=== PATIENT | female | born 1935 | race Caucasian/White ===

== ENCOUNTER 2017-11-19 10:55 | Emergency (ER) | payer MEDICARE, BC ==
[2017-11-19] MEDS ORDERED: Ketorolac 30 MG/ML SDV IVPUSH ONE (11:35)
[2017-11-19] MEDS ORDERED: Sodium Chloride 0.9% 10 ML Syringe FLUSH PRN (11:36)
--- NOTE | 2017-11-19 11:44 | EDM.PDOC ---
ED HPI GENERAL MEDICAL PROBLEM - General Chief Complaint: Syncope Stated Complaint: [facility] Time Seen by Provider: 11/19/17 11:25 Source of Information: Reports: Patient, Family, Old Records History Limitations: Reports: Other (records incomplete) - History of Present Illness INITIAL COMMENTS - FREE TEXT/NARRATIVE: 82 yo female with a pHx of syncopal spells presents via EMS after another brief syncopal spell at home today. When she came to on the floor she complained of mid back pain. Recalls feeling like she might pass out just before she did. Was standing in one place at the onset. Denies chest pain. No recent vomiting, diarrhea, or bleeding. says that her prior spells were associated with bradycardia. 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 (see below) (none) back pain Pain Score (Numeric/FACES): 3 - Related Data Allergies Allergy/AdvReac Type Severity Reaction Status Date / Time amlodipine Allergy Cannot Verified 11/19/17 11:07 Remember carbamazepine [From Tegretol] Allergy Dizziness Verified 11/19/17 11:07 Penicillins Allergy Hives Verified 11/19/17 11:07 Home Meds: Home Meds Cyanocobalamin (Vitamin B-12) [Cyanocobalamin Injection] 1,000 mcg IM .[id number] 06/29/13 [History] Metoprolol Succinate [Toprol XL] 25 mg PO DAILY 06/29/13 [History] Aspirin [Low Dose Aspirin EC] 81 mg PO DAILY 07/21/13 [History] Pregabalin [Lyrica] 300 mg PO BEDTIME 09/14/15 [History] oxyCODONE 10 mg PO Q4H PRN 09/14/15 [History] Lidocaine 2% [Xylocaine 2% Viscous] 15 ml PO ASDIRECTED 07/13/16 [History] DULoxetine [Cymbalta] 30 mg PO DAILY 10/24/16 [History] Losartan [Cozaar] 25 mg PO DAILY 11/19/17 [History] oxyCODONE [oxyCODONE] 10 mg PO Q4HR PRN 11/19/17 [History] Past Medical History HEENT History: Reports: Hard of Hearing, Other (See Below) Other HEENT History: mouth pain, left face pain. 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: Neurological History: Reports: Migraines Other Neuro History: n Endocrine/Metabolic History: Reports: Vitamin D Deficiency Hematologic History: Reports: Anemia Other Hematologic History: Autoimmune hemolytic anemia - Infectious Disease History Infectious Disease History: Reports: Chicken Pox, Measles, Mumps - Past Surgical History GI Surgical History: Reports: Cholecystectomy Other Musculoskeletal Surgeries/Procedures:: rigth foot fracture Social & Family History - Tobacco Use Smoking Status *Q: Never Smoker Second Hand Smoke Exposure: No - Caffeine Use Caffeine Use: Reports: None - Alcohol Use Days Per Week of Alcohol Use: 0 - Recreational Drug Use Recreational Drug Use: No ED ROS GENERAL - Review of Systems Review Of Systems: See Below Constitutional: Reports: Diaphoresis ( states she was sweaty at first.) HEENT: Reports: No Symptoms Respiratory: Reports: No Symptoms Cardiovascular: Reports: No Symptoms GI/Abdominal: Reports: No Symptoms : Reports: No Symptoms Musculoskeletal: Reports: Back Pain (since fall) Skin: Reports: Diaphoresis (reported by her , now resolved.) Neurological: Reports: No Symptoms Psychiatric: Reports: No Symptoms - Physical Exam Exam: See Below Exam Limited By: No Limitations General Appearance: Alert, WD/WN, No Apparent Distress Eye Exam: Bilateral Eye: EOMI, Normal Inspection, PERRL Ears: Normal External Exam, Normal Canal, Hearing Grossly Normal, Normal TMs Nose: Normal Inspection, Normal Mucosa, No Blood Throat/Mouth: Normal Inspection, Normal Lips, Normal Oropharynx, Normal Voice, No Airway Compromise Head Exam: Atraumatic, Normocephalic Neck: Normal Inspection Respiratory/Chest: No Respiratory Distress, Lungs Clear, Normal Breath Sounds, No Accessory Muscle Use Cardiovascular: Regular Rate, Rhythm GI/Abdominal: Normal Bowel Sounds, Soft, Non-Tender, No Distention Neuro Exam (Abbreviated): Alert, Oriented, CN II-XII Intact, Normal Cognition, No Motor/Sensory Deficits Back Exam: Normal Inspection. No: CVA Tenderness (R), CVA Tenderness (L), Paraspinal Tenderness, Vertebral Tenderness Extremities: Normal Inspection, Normal Range of Motion, Non-Tender, No Pedal Edema. No: Pedal Edema Psychiatric: Normal Affect, Normal Mood Skin Exam: Warm, Dry, Intact, Normal Color, No Rash EKG INTERPRETATION EKG Date: 11/19/17 Time: 10:25 Rhythm: NSR Rate (Beats/Min): 67 [place]: Normal P-Wave: Present QRS: Normal ST-T: Normal QT: Normal Comparison: No Change Course - Vital Signs Text/Narrative:: Toradol 15 mg IV given Orthostatic vitals-BP drop of just over 20 pts(minimally symptomatic) Will feed lunch and give a liter of LR Last Recorded V/S: Last Vital Signs Temp 36.3 C 11/19/17 11:04 Pulse 65 11/19/17 11:04 Resp 16 11/19/17 11:04 BP 160/67 H 11/19/17 11:04 Pulse Ox 98 11/19/17 11:04 - Orders/Labs/Meds Orders: Active Orders 24 hr Category Date Time Status Cardiac Monitoring [RC] .As Directed Care 11/19/17 11:36 Active Orthostatic Vital Signs [RC] ASDIRECTED Care 11/19/17 12:37 Active UA W/MICROSCOPIC [URIN] Stat Lab 11/19/17 11:38 Ordered Lactated Ringers [Ringers, Lactated] 1,000 ml Med 11/19/17 13:17 Ordered IV BOLUS Sodium Chloride 0.9% [Saline Flush] Med 11/19/17 11:36 Active 10 ml FLUSH ASDIRECTED PRN Saline Lock Insert [OM.PC] Routine Oth 11/19/17 11:36 Ordered Medication Orders Sodium Chloride (Saline Flush) 10 ml FLUSH ASDIRECTED PRN PRN Reason: Keep Vein Open Last Admin: 11/19/17 11:44 Dose: 10 ml Labs: Laboratory Tests 11/19/17 11/19/17 Range/Units 11:43 11:43 WBC 10.7 (4.5-11.0) K/uL RBC 4.06 (3.30-5.50) M/uL Hgb 12.8 (12.0-15.0) g/dL Hct 38.7 (36.0-48.0) % MCV 95 (80-98) fL MCH 32 H (27-31) pg MCHC 33 (32-36) % Plt Count 172 (150-400) K/uL Sodium 137 L (140-148) mmol/L Potassium 4.1 (3.6-5.2) mmol/L Chloride 101 (100-108) mmol/L Carbon Dioxide 31 (21-32) mmol/L Anion Gap 9.1 (5.0-14.0) mmol/L BUN 13 (7-18) mg/dL Creatinine 0.9 (0.6-1.0) mg/dL Est Cr Clr Drug Dosing 39.27 mL/min Estimated GFR (MDRD) > 60 (>60) Glucose 103 (74-106) mg/dL Calcium 8.8 (8.5-10.1) mg/dL Troponin I 0.025 (0.000-0.056) ng/mL Meds: Medications Generic Name Dose Route Start Last Admin Trade Name Freq PRN Reason Stop Dose Admin Sodium Chloride 10 ml 11/19/17 11:36 11/19/17 11:44 Saline Flush FLUSH 10 ml ASDIRECTED PRN Administration Keep Vein Open Discontinued Medications Generic Name Dose Route Start Last Admin Trade Name Freq PRN Reason Stop Dose Admin Ketorolac Tromethamine 15 mg 11/19/17 11:35 11/19/17 11:44 Toradol IVPUSH 11/19/17 11:36 15 mg ONETIME ONE Administration - Radiology Interpretation Free Text/Narrative:: Lumbar spine X-ray-degen changes only T-spine X-ray-degen changes only. Departure - Departure Time of Disposition: 14:25 Disposition: Home, Self-Care 01 Condition: Fair Clinical Impression: Orthostatic hypotension Syncope Qualifiers: Syncope type: unspecified Qualified Code(s): R55 - Syncope and collapse - Discharge Information Referrals: PCP,None [Primary Care Provider] - Forms: ED Department Discharge - My Orders Last 24 Hours: My Active Orders 11/19/17 11:36 Cardiac Monitoring [RC] .As Directed Sodium Chloride 0.9% [Saline Flush] 10 ml FLUSH ASDIRECTED PRN Saline Lock Insert [OM.PC] Routine 11/19/17 11:38 UA W/MICROSCOPIC [URIN] Stat 11/19/17 12:37 Orthostatic Vital Signs [RC] ASDIRECTED 11/19/17 13:17 Lactated Ringers [Ringers, Lactated] 1,000 ml IV BOLUS - Assessment/Plan Last 24 Hours: My Active Orders 11/19/17 11:36 Cardiac Monitoring [RC] .As Directed Sodium Chloride 0.9% [Saline Flush] 10 ml FLUSH ASDIRECTED PRN Saline Lock Insert [OM.PC] Routine 11/19/17 11:38 UA W/MICROSCOPIC [URIN] Stat 11/19/17 12:37 Orthostatic Vital Signs [RC] ASDIRECTED 11/19/17 13:17 Lactated Ringers [Ringers, Lactated] 1,000 ml IV BOLUS
--- NOTE | 2017-11-19 12:37 | CR ---
T-spine Findings: There is a scoliotic curvature of the thoracic spine with the convexity to the left. There are no com pression fractures. There is degenerative disc space loss with hypertrophic endplate changes througho ut the thoracic spine. Impression: 1. Degenerative findings of the thoracic spine. Line 2. No evidence of fracture.
--- NOTE | 2017-11-19 12:38 | CR ---
L-spine There is grade 1 spondylolisthesis at L4/5. There are no compression fractures. There is degenerative facet arthropathy throughout the lumbar spine. Impression: 1. No acute findings.
[2017-11-19] MEDS ORDERED: Lactated Ringers 1,000 ML IV ONE (13:17)
[2017-11-19 14:18] VITALS: BP 153/71
== END 2017-11-19 15:12 | disposition home or self-care (01) ==
LOC: JP.ED 10:55
DX: I95.1 Orthostatic hypotension (principal); E78.00 Pure hypercholesterolemia, unspecified; I10 Essential (primary) hypertension; Z88.8 Allergy status to other drugs, medicaments and biological substances; Z88.0 Allergy status to penicillin; Z79.82 Long term (current) use of aspirin; Z79.899 Other long term (current) drug therapy
CPT/HCPCS: 36415; 72070; 72100; 80048; 84484; 85027; 96361; 96374; 99284; J1885; J7050; J7120

== ENCOUNTER 2019-06-14 23:21 | Inpatient (IN) | payer MEDICARE, BC ==
--- NOTE | 2019-06-15 00:09 | EDM.PDOC ---
ED HPI GENERAL MEDICAL PROBLEM - General Chief Complaint: General Stated Complaint: FELL Time Seen by Provider: 06/14/19 23:40 Source of Information: Reports: Patient, Family History Limitations: Reports: Altered Mental Status - History of Present Illness INITIAL COMMENTS - FREE TEXT/NARRATIVE: 84 yo with hx of trigeminal neuralgia, a-fib (no anticoagulation) presents with concerns of falls and generalized weakness. History provided primarily be . reports she fell approximately 24 hrs ago, spent much of the last day in a chair at home. She again had an unwitnessed fall tonight, found her on the ground. She has been more weak recently, and overall having decline for some time. She is supposed to be wheelchair bound but this has not happened. No fevers. Patient has reported dysuria. She is intermittently concerned of neck pain. Is on multiple pain meds (oxycodone, lyrica) for painful mouth syndrome. Posterior Neck Pain Score (Numeric/FACES): 4 - Related Data Allergies Allergy/AdvReac Type Severity Reaction Status Date / Time amlodipine Allergy Cannot Verified 11/19/17 11:07 Remember carbamazepine [From Tegretol] Allergy Dizziness Verified 11/19/17 11:07 Penicillins Allergy Hives Verified 11/19/17 11:07 Home Meds: Home Meds Cyanocobalamin (Vitamin B-12) [Cyanocobalamin Injection] 1,000 mcg IM .[id number] 06/29/13 [History] Metoprolol Succinate [Toprol XL] 25 mg PO DAILY 06/29/13 [History] Aspirin [Low Dose Aspirin EC] 81 mg PO DAILY 07/21/13 [History] Pregabalin [Lyrica] 300 mg PO BEDTIME 09/14/15 [History] oxyCODONE 10 mg PO Q4H PRN 09/14/15 [History] Lidocaine 2% [Xylocaine 2% Viscous] 15 ml PO ASDIRECTED 07/13/16 [History] oxyCODONE 10 mg PO Q4HR PRN 11/19/17 [History] Past Medical History HEENT History: Reports: Hard of Hearing, Other (See Below) Other HEENT History: mouth pain, left face pain. 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: Musculoskeletal History: Reports: Osteoporosis Neurological History: Reports: Migraines Other Neuro History: n Endocrine/Metabolic History: Reports: Hypothyroidism, Vitamin D Deficiency Hematologic History: Reports: Anemia Other Hematologic History: Autoimmune hemolytic anemia - Infectious Disease History Infectious Disease History: Reports: Chicken Pox, Measles, Mumps - Past Surgical History GI Surgical History: Reports: Cholecystectomy Other Musculoskeletal Surgeries/Procedures:: rigth foot fracture Social & Family History - Family History Family Medical History: Noncontributory - Tobacco Use Smoking Status *Q: Never Smoker - Caffeine Use Caffeine Use: Reports: None - Recreational Drug Use Recreational Drug Use: No ED ROS GENERAL - Review of Systems Review Of Systems: See Below Constitutional: Reports: No Symptoms HEENT: Reports: Other (mouth pain) Respiratory: Reports: No Symptoms Cardiovascular: Reports: No Symptoms Endocrine: Reports: No Symptoms GI/Abdominal: Reports: No Symptoms : Reports: Dysuria Musculoskeletal: Reports: Neck Pain Skin: Reports: No Symptoms Neurological: Reports: Confusion, Weakness Psychiatric: Reports: No Symptoms Hematologic/Lymphatic: Reports: No Symptoms Immunologic: Reports: No Symptoms ED EXAM, GENERAL - Physical Exam Exam: See Below Exam Limited By: Altered Mental Status General Appearance: Alert Nose: Normal Inspection Head: Atraumatic, Normocephalic Neck: Normal Inspection, Non-Tender Respiratory/Chest: Lungs Clear Cardiovascular: Regular Rate, Rhythm GI/Abdominal: Soft, Tender (suprapubic). No: Guarding Back Exam: Normal Inspection Extremities: Normal Inspection Neurological: Alert, CN II-XII Intact, Other (Oriented to place, global weakness , no focal deficit) Psychiatric: Normal Affect Skin Exam: Warm, Dry Course - Vital Signs Last Recorded V/S: Last Vital Signs Temp 37.6 C 06/15/19 01:03 Pulse 67 06/15/19 01:43 Resp 13 06/15/19 01:43 BP 110/60 06/15/19 01:43 Pulse Ox 93 L 06/15/19 01:43 - Orders/Labs/Meds Orders: Active Orders 24 hr Category Date Time Status EKG Documentation Completion [RC] ASDIRECTED Care 06/14/19 23:30 Active CULTURE URINE [RM] Stat Lab 06/15/19 00:30 Received Sodium Chloride 0.9% [Normal Saline] 500 ml Med 06/15/19 02:15 Active IV ASDIRECTED EKG 12 Lead [EK] Routine Ther 06/14/19 23:29 Ordered Medication Orders Sodium Chloride (Normal Saline) 500 mls @ 500 mls/hr IV ASDIRECTED ISHMAEL Labs: Laboratory Tests 06/14/19 06/14/19 06/14/19 Range/Units 23:39 23:39 23:39 WBC 9.7 (4.5-11.0) K/uL RBC 3.91 (3.30-5.50) M/uL Hgb 12.3 (12.0-15.0) g/dL Hct 36.5 (36.0-48.0) % MCV 93 (80-98) fL MCH 32 H (27-31) pg MCHC 34 (32-36) % Plt Count 152 (150-400) K/uL Sodium 127 L (140-148) mmol/L Potassium 4.3 (3.6-5.2) mmol/L Chloride 93 L (100-108) mmol/L Carbon Dioxide 30 (21-32) mmol/L Anion Gap 8.3 (5.0-14.0) mmol/L BUN 15 (7-18) mg/dL Creatinine 0.9 (0.6-1.0) mg/dL Est Cr Clr Drug Dosing 34.51 mL/min Estimated GFR (MDRD) 60 (>60) Glucose 118 H (74-106) mg/dL Calcium 8.4 L (8.5-10.1) mg/dL Phosphorus (2.5-4.9) mg/dL Magnesium 1.7 L (1.8-2.4) mg/dL Total Bilirubin 1.0 D (0.2-1.0) mg/dL AST 22 (15-37) U/L ALT 12 (12-78) U/L Alkaline Phosphatase 58 (46-116) U/L Total Protein 6.9 (6.4-8.2) g/dL Albumin 2.9 L (3.4-5.0) g/dL Globulin 4.0 H (2.3-3.5) g/dL Albumin/Globulin Ratio 0.7 L (1.2-2.2) Urine Color (YELLOW) Urine Appearance (CLEAR) Urine pH (5.0-8.0) Ur Specific [place] (1.008-1.030) Urine Protein (NEGATIVE) mg/dL Urine Glucose (UA) (NEGATIVE) mg/dL Urine Ketones (NEGATIVE) mg/dL Urine Occult Blood (NEGATIVE) Urine Nitrite (NEGATIVE) Urine Bilirubin (NEGATIVE) Urine Urobilinogen (0.2-1.0) EU/dL Ur Leukocyte Esterase (NEGATIVE) Urine RBC (0-5) Urine WBC (0-5) Ur Epithelial Cells Amorphous Sediment Urine Bacteria Urine Mucus 06/14/19 06/15/19 Range/Units 23:58 00:12 WBC (4.5-11.0) K/uL RBC (3.30-5.50) M/uL Hgb (12.0-15.0) g/dL Hct (36.0-48.0) % MCV (80-98) fL MCH (27-31) pg MCHC (32-36) % Plt Count (150-400) K/uL Sodium (140-148) mmol/L Potassium (3.6-5.2) mmol/L Chloride (100-108) mmol/L Carbon Dioxide (21-32) mmol/L Anion Gap (5.0-14.0) mmol/L BUN (7-18) mg/dL Creatinine (0.6-1.0) mg/dL Est Cr Clr Drug Dosing mL/min Estimated GFR (MDRD) (>60) Glucose (74-106) mg/dL Calcium (8.5-10.1) mg/dL Phosphorus 2.6 (2.5-4.9) mg/dL Magnesium (1.8-2.4) mg/dL Total Bilirubin (0.2-1.0) mg/dL AST (15-37) U/L ALT (12-78) U/L Alkaline Phosphatase (46-116) U/L Total Protein (6.4-8.2) g/dL Albumin (3.4-5.0) g/dL Globulin (2.3-3.5) g/dL Albumin/Globulin Ratio (1.2-2.2) Urine Color Yellow (YELLOW) Urine Appearance Cloudy A (CLEAR) Urine pH 7.0 (5.0-8.0) Ur Specific [place] 1.015 (1.008-1.030) Urine Protein 100 H (NEGATIVE) mg/dL Urine Glucose (UA) Negative (NEGATIVE) mg/dL Urine Ketones Negative (NEGATIVE) mg/dL Urine Occult Blood Moderate H (NEGATIVE) Urine Nitrite Positive H (NEGATIVE) Urine Bilirubin Negative (NEGATIVE) Urine Urobilinogen 0.2 (0.2-1.0) EU/dL Ur Leukocyte Esterase Large H (NEGATIVE) Urine RBC 0-5 (0-5) Urine WBC Packed H (0-5) Ur Epithelial Cells Not seen Amorphous Sediment Few Urine Bacteria Moderate Urine Mucus Not seen Meds: Medications Generic Name Dose Route Start Last Admin Trade Name Freq PRN Reason Stop Dose Admin Sodium Chloride 500 mls @ 500 mls/hr 06/15/19 02:15 Normal Saline IV ASDIRECTED ISHMAEL Discontinued Medications Generic Name Dose Route Start Last Admin Trade Name Freq PRN Reason Stop Dose Admin Ceftriaxone Sodium 1 gm/ 50 mls @ 100 mls/hr 06/15/19 00:10 06/15/19 00:58 Sodium Chloride IV 06/15/19 00:39 100 mls/hr ONETIME ONE Administration Lactated Ringer's 500 mls @ 500 mls/hr 06/15/19 00:30 Ringers, Lactated IV .BOLUS ISHMAEL Sodium Chloride 500 ml 06/15/19 01:46 06/15/19 01:56 Normal Saline IV 06/15/19 01:47 Not Given NOW STA - Re-Assessments/Exams Free Text/Narrative Re-Assessment/Exam: 84 yo presents with generalized malaise, frequent falls at home Stable vitals. Exam notable for suprapubic tenderness, generalized weakness, depressed mental status Patient intermittently concerned of neck pain. Will obtain CT head/neck given falls, pain. No other trauma by exam to necessitate further imaging. Will perform basic infectious work-up. Suspicious for UTI. Giving ceftriaxone. Will need admission as she is not safe to be at home due to acute decline. 06/15/19 00:19 Free Text/Narrative Re-Assessment/Exam: CT head/neck unremarkable. Blood work generally unremarkable. UA grossly positive. Suspect UTI has led to acute decline. Not safe to go home, admitted for further work up and appropriate placement. 06/15/19 02:13 Departure - Departure Time of Disposition: 02:10 Disposition: Admitted As Inpatient 68 Clinical Impression: Gait instability UTI (urinary tract infection) Qualifiers: Urinary tract infection type: acute cystitis Hematuria presence: with hematuria Qualified Code(s): N30.01 - Acute cystitis with hematuria - Discharge Information *PRESCRIPTION DRUG MONITORING PROGRAM REVIEWED*: No *COPY OF PRESCRIPTION DRUG MONITORING REPORT IN PATIENT LALA: No Referrals: PCP,None [Primary Care Provider] - Forms: ED Department Discharge - My Orders Last 24 Hours: My Active Orders 06/14/19 23:29 EKG 12 Lead [EK] Routine 06/14/19 23:30 EKG Documentation Completion [RC] ASDIRECTED 06/15/19 00:30 CULTURE URINE [RM] Stat 06/15/19 02:15 Sodium Chloride 0.9% [Normal Saline] 500 ml IV ASDIRECTED - Assessment/Plan Last 24 Hours: My Active Orders 06/14/19 23:29 EKG 12 Lead [EK] Routine 06/14/19 23:30 EKG Documentation Completion [RC] ASDIRECTED 06/15/19 00:30 CULTURE URINE [RM] Stat 06/15/19 02:15 Sodium Chloride 0.9% [Normal Saline] 500 ml IV ASDIRECTED
[2019-06-15] MEDS ORDERED: cefTRIAXone 1 GM in Sodium Chloride 0.9% 50 ML IV ONE (00:10)
[2019-06-15] MEDS ORDERED: Lactated Ringers 500 ML IV SCH (00:30)
--- NOTE | 2019-06-15 00:57 | CRLCR ---
HISTORY: Confusion, hypoxia, possible sepsis. COMPARISON: 12/28/2012 FINDINGS: A portable erect AP view of the chest was obtained at 0024 hours. There is increased fibronodular density in the apices. This is suggestive of tuberculosis, and with increased density, active tuberculosis cannot be excluded. The rest of the chest remains clear The heart remains normal in size. The mediastinum is normal in appearance. The osseous structures are normal in appearance for the patient`s age. IMPRESSION: Increased fibronodular density in the apices, cannot exclude reactivation tuberculosis. No other abnormality seen in the chest. Dictated by London Escobar MD @ Jun 15 2019 12:53AM Signed by Dr. London Escobar @ Jun 15 2019 12:56AM
--- NOTE | 2019-06-15 01:17 | CRLCT ---
INDICATION: CONFUSION HYPOXIA FALLS CT HEAD WITHOUT CONTRAST TECHNIQUE: Multiple axial CT images were performed through the head without intravenous contrast administration. COMPARISON: 06/09/[address] FINDINGS: No acute intracranial hemorrhage is identified. No extra-axial collections are evident and there is no mass effect or midline shift. There is mild diffuse age-related brain atrophy. Ventricular size and configuration are within normal limits for the patient`s age. Hernandez-white differentiation is within normal limits. There is unchanged patchy hypodensity in the periventricular white matter, a nonspecific finding which most likely reflects chronic small vessel ischemic change. Osseous structures are within normal limits and no fractures are seen. Included portions of the paranasal sinuses and mastoid air cells are normally aerated. IMPRESSION: 1. No acute intracranial abnormality identified. 2. Mild age-related brain atrophy and white matter hypodensity consistent with chronic small vessel ischemic change. CABRERA WHITLEY MD [facility] [employer] Dictated by: Nnamdi Whitley MD @ 06/15/2019 01:16:36 (Electronically Signed)
--- NOTE | 2019-06-15 01:21 | CRLCT ---
INDICATION: FALLS NECK PAIN CT CERVICAL SPINE WITHOUT CONTRAST TECHNIQUE: Multidetector axial CT imaging was performed through the cervical spine, without contrast. Sagittal and coronal reconstructions were generated. FINDINGS: No acute fractures are identified. Multilevel degenerative change is noted in the cervical spine, including degenerative disc disease at C2-3 through C6-7, and scattered facet joint degenerative changes. Osseous alignment is within normal limits and no subluxation is seen. Prevertebral soft tissues are unremarkable. A 2cm hypodense nodule is noted in the right thyroid lobe. Included portions of the airway and lung apices are within normal limits. IMPRESSION: 1. No fracture, subluxation, or other acute finding identified. 2. Cervical spondylosis, as noted above. CABRERA WHITLEY MD [facility] [employer] Dictated by: Nnamdi Whitley MD @ 06/15/2019 01:20:08 (Electronically Signed)
[2019-06-15] MEDS ORDERED: Sodium Chloride 0.9% 10 ML SDV IV STA (01:46)
[2019-06-15] MEDS ORDERED: Sodium Chloride 0.9% 500 ML IV SCH (02:15)
--- NOTE | 2019-06-15 03:08 | PCM.HP.2 ---
H&P History of Present Illness - General Date of Service: 06/14/19 Admit Problem/Dx: Admission Diagnosis/Problem Admission Diagnosis/Problem Urinary tract infection Source of Information: Patient, Provider, RN Notes Reviewed History Limitations: Reports: Other (weakness, fatigue) - History of Present Illness Initial Comments - Free Text/Narative: Chief Complaint: reports weakness and confusion History Limitations: Reports: Altered Mental Status - History of Present Illness: 84 yo with hx of trigeminal neuralgia, a-fib (no anticoagulation) presents with concerns of falls and generalized weakness. History provided primarily be . reports she fell approximately 24 hrs ago, spent much of the last day in a chair at home. She again had an unwitnessed fall tonight, found her on the ground. She has been more weak recently, and overall having decline for some time. She is supposed to be wheelchair bound but this has not happened. No fevers. Patient has reported dysuria. incontinence of urine, wears diaper. She is intermittently concerned of neck pain. Is on multiple pain meds (oxycodone, lyrica) for painful mouth syndrome. Onset of Symptoms: Reports: Gradual Duration of Symptoms: Reports: Day(s): Location: Reports: Generalized Quality: Reports: Ache (low abdomen and back), Burning (low abdomen) Severity: Moderate Improves with: Reports: Rest Worsens with: Reports: Movement Context: Reports: Other (gradual decline in health and mobility at home) Associated Symptoms: Reports: Confusion, Loss of Appetite, Weakness (falls at home) Posterior Neck Pain Score (Numeric/FACES): 4 - Related Data Allergies/Adverse Reactions: Allergies Allergy/AdvReac Type Severity Reaction Status Date / Time amlodipine Allergy Cannot Verified 11/19/17 11:07 Remember carbamazepine [From Tegretol] Allergy Dizziness Verified 11/19/17 11:07 Penicillins Allergy Hives Verified 11/19/17 11:07 Home Medications: Home Meds Cyanocobalamin (Vitamin B-12) [Cyanocobalamin Injection] 1,000 mcg IM .[id number] 06/29/13 [History] Metoprolol Succinate [Toprol XL] 25 mg PO DAILY 06/29/13 [History] Aspirin [Low Dose Aspirin EC] 81 mg PO DAILY 07/21/13 [History] Pregabalin [Lyrica] 300 mg PO BEDTIME 09/14/15 [History] oxyCODONE 10 mg PO Q4H PRN 09/14/15 [History] Lidocaine 2% [Xylocaine 2% Viscous] 15 ml PO ASDIRECTED 07/13/16 [History] oxyCODONE 10 mg PO Q4HR PRN 11/19/17 [History] Past Medical History HEENT History: Reports: Hard of Hearing, Other (See Below) Other HEENT History: mouth pain, left face pain. 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: Musculoskeletal History: Reports: Osteoporosis Neurological History: Reports: Migraines Other Neuro History: n Endocrine/Metabolic History: Reports: Hypothyroidism, Vitamin D Deficiency Hematologic History: Reports: Anemia Other Hematologic History: Autoimmune hemolytic anemia - Infectious Disease History Infectious Disease History: Reports: Chicken Pox, Measles, Mumps - Past Surgical History GI Surgical History: Reports: Cholecystectomy Other Musculoskeletal Surgeries/Procedures:: rigth foot fracture Social & Family History - Family History Family Medical History: Noncontributory - Tobacco Use Smoking Status *Q: Never Smoker - Caffeine Use Caffeine Use: Reports: None - Recreational Drug Use Recreational Drug Use: No - Living Situation & Occupation Living situation: Reports: 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[place], [place].) H&P Review of Systems - Review of Systems: Review Of Systems: See Below General: Reports: Weakness, Fatigue, Decreased Appetite HEENT: Reports: Glasses, Other (dentures, burning mouth syndrome, idiopathic trigeminal neuralgia.) Pulmonary: Reports: No Symptoms Cardiovascular: Reports: No Symptoms Gastrointestinal: Reports: Abdominal Pain (low pelvic), Decreased Appetite Genitourinary: Reports: Dysuria, Frequency, Incontinence Musculoskeletal: Reports: Back Pain (low back pain) Skin: Reports: No Symptoms Psychiatric: Reports: Confusion (for the past few days) Neurological: Reports: Pre-Existing Deficit, Weakness (increased weakness, falls at home) Exam - Exam Exam: See Below - Vital Signs Vital Signs: Last Vital Signs Temp 37.6 C 06/15/19 01:03 Pulse 67 06/15/19 01:43 Resp 13 06/15/19 01:43 BP 110/60 06/15/19 01:43 Pulse Ox 93 L 06/15/19 01:43 Weight: 45.359 kg - Exam Quality Assessment: DVT Prophylaxis General: Alert, Oriented, Cooperative, Other HEENT: EOMI, Hearing Intact, Posterior Pharynx Clear, Pupils Equal, Pupils Reactive, TMs Clear, Glasses, Other (mouth dry, upper dentures) Neck: Supple, Trachea Midline Lungs: Clear to Auscultation, Normal Respiratory Effort Cardiovascular: Regular Rate, Regular Rhythm, Normal S1, Normal S2 GI/Abdominal Exam: Normal Bowel Sounds, Soft, Tender (pelvic, over bladder area) (Female) Exam: Deferred Rectal (Female) Exam: Deferred Back Exam: Normal Inspection Extremities: Normal Inspection, Normal Range of Motion, Non-Tender, Pedal Edema , Limited Range of Motion (due to advanced age) Peripheral Pulses: 2+: Radial (L), Radial (R), Dorsalis Pedis (L), Dorsalis Pedis (R) Skin: Warm, Dry, Intact Neurological: Reflexes Equal Bilateral, Strength Equal Bilateral Neuro Extensive - Mental Status: Alert, Normal Mood/Affect DTR: 2+: Patella (L), Patella (R) Psychiatric: Alert, Normal Affect, Normal Mood - Patient Data Lab Results Last 24 hrs: Laboratory Results - last 24 hr 06/14/19 06/14/19 06/14/19 Range/Units 23:39 23:39 23:39 WBC 9.7 (4.5-11.0) K/uL RBC 3.91 (3.30-5.50) M/uL Hgb 12.3 (12.0-15.0) g/dL Hct 36.5 (36.0-48.0) % MCV 93 (80-98) fL MCH 32 H (27-31) pg MCHC 34 (32-36) % Plt Count 152 (150-400) K/uL Sodium 127 L (140-148) mmol/L Potassium 4.3 (3.6-5.2) mmol/L Chloride 93 L (100-108) mmol/L Carbon Dioxide 30 (21-32) mmol/L Anion Gap 8.3 (5.0-14.0) mmol/L BUN 15 (7-18) mg/dL Creatinine 0.9 (0.6-1.0) mg/dL Est Cr Clr Drug Dosing 34.51 mL/min Estimated GFR (MDRD) 60 (>60) Glucose 118 H (74-106) mg/dL Calcium 8.4 L (8.5-10.1) mg/dL Phosphorus (2.5-4.9) mg/dL Magnesium 1.7 L (1.8-2.4) mg/dL Total Bilirubin 1.0 D (0.2-1.0) mg/dL AST 22 (15-37) U/L ALT 12 (12-78) U/L Alkaline Phosphatase 58 (46-116) U/L Total Protein 6.9 (6.4-8.2) g/dL Albumin 2.9 L (3.4-5.0) g/dL Globulin 4.0 H (2.3-3.5) g/dL Albumin/Globulin Ratio 0.7 L (1.2-2.2) Urine Color (YELLOW) Urine Appearance (CLEAR) Urine pH (5.0-8.0) Ur Specific Mobile (1.008-1.030) Urine Protein (NEGATIVE) mg/dL Urine Glucose (UA) (NEGATIVE) mg/dL Urine Ketones (NEGATIVE) mg/dL Urine Occult Blood (NEGATIVE) Urine Nitrite (NEGATIVE) Urine Bilirubin (NEGATIVE) Urine Urobilinogen (0.2-1.0) EU/dL Ur Leukocyte Esterase (NEGATIVE) Urine RBC (0-5) Urine WBC (0-5) Ur Epithelial Cells Amorphous Sediment Urine Bacteria Urine Mucus 06/14/19 06/15/19 Range/Units 23:58 00:12 WBC (4.5-11.0) K/uL RBC (3.30-5.50) M/uL Hgb (12.0-15.0) g/dL Hct (36.0-48.0) % MCV (80-98) fL MCH (27-31) pg MCHC (32-36) % Plt Count (150-400) K/uL Sodium (140-148) mmol/L Potassium (3.6-5.2) mmol/L Chloride (100-108) mmol/L Carbon Dioxide (21-32) mmol/L Anion Gap (5.0-14.0) mmol/L BUN (7-18) mg/dL Creatinine (0.6-1.0) mg/dL Est Cr Clr Drug Dosing mL/min Estimated GFR (MDRD) (>60) Glucose (74-106) mg/dL Calcium (8.5-10.1) mg/dL Phosphorus 2.6 (2.5-4.9) mg/dL Magnesium (1.8-2.4) mg/dL Total Bilirubin (0.2-1.0) mg/dL AST (15-37) U/L ALT (12-78) U/L Alkaline Phosphatase (46-116) U/L Total Protein (6.4-8.2) g/dL Albumin (3.4-5.0) g/dL Globulin (2.3-3.5) g/dL Albumin/Globulin Ratio (1.2-2.2) Urine Color Yellow (YELLOW) Urine Appearance Cloudy A (CLEAR) Urine pH 7.0 (5.0-8.0) Ur Specific Mobile 1.015 (1.008-1.030) Urine Protein 100 H (NEGATIVE) mg/dL Urine Glucose (UA) Negative (NEGATIVE) mg/dL Urine Ketones Negative (NEGATIVE) mg/dL Urine Occult Blood Moderate H (NEGATIVE) Urine Nitrite Positive H (NEGATIVE) Urine Bilirubin Negative (NEGATIVE) Urine Urobilinogen 0.2 (0.2-1.0) EU/dL Ur Leukocyte Esterase Large H (NEGATIVE) Urine RBC 0-5 (0-5) Urine WBC Packed H (0-5) Ur Epithelial Cells Not seen Amorphous Sediment Few Urine Bacteria Moderate Urine Mucus Not seen Result Diagrams: 06/14/19 23:39 06/14/19 23:39 - Problem List (1) UTI (urinary tract infection) SNOMED Code(s): 34372965 ICD Code: N39.0 - URINARY TRACT INFECTION, SITE NOT SPECIFIED Status: Acute Priority: High Current Visit: Yes Qualifiers: Urinary tract infection type: acute cystitis Hematuria presence: with hematuria Qualified Code(s): N30.01 - Acute cystitis with hematuria (2) Benign essential hypertension SNOMED Code(s): 7194108 ICD Code: I10 - ESSENTIAL (PRIMARY) HYPERTENSION Status: Chronic Priority : Low Current Visit: No (3) Burning mouth syndrome SNOMED Code(s): 591530873 ICD Code: K14.6 - GLOSSODYNIA Status: Chronic Priority: Low Current Visit: No (4) Chronic pain syndrome SNOMED Code(s): 765946277 ICD Code: G89.4 - CHRONIC PAIN SYNDROME Status: Chronic Priority: Low Current Visit: No Problem List Initiated/Reviewed/Updated: Yes Orders Last 24hrs: Active Orders 24 hr Category Date Time Status Patient Status Manage Transfer [TRANSFER] Routine ADT 06/15/19 02:36 Ordered EKG Documentation Completion [RC] ASDIRECTED Care 06/14/19 23:30 Active CULTURE URINE [RM] Stat Lab 06/15/19 00:30 Received Sodium Chloride 0.9% [Normal Saline] 500 ml Med 06/15/19 02:15 Active IV ASDIRECTED Resuscitation Status Routine Resus Stat 06/15/19 02:41 Ordered EKG 12 Lead [EK] Routine Ther 06/14/19 23:29 Ordered Medication Orders Sodium Chloride (Normal Saline) 500 mls @ 500 mls/hr IV ASDIRECTED [facility] Assessment/Plan Comment:: ASSESSMENT / PLAN In Emergency room. labs WBC 9.7, urine +nitrates, packed WBC, +RBC, +Leukocyte, +Nitrate, urine culture pending, Head and Neck CT negative, IV Rocephin 1 gram and IV fluids bolus in ER. Due to weakness with UTI, it was decided to admit to hospital for further care and treatment. Urinary Tract Infection -Admit to ICU Med-Surg. overflow -IV Fluids for rehydration Normal Saline#2 bag at 100ml/hr. -IV Antibiotic; Rocephin 1 gram IV every 24 hours -Tylenol, Motrin or Oxycodone for pain control -Advise to notify nurses of any fever or worsen pain -urine culture pending Hypertension -continue home medication Burning mouth syndrome and chronic pain -continue home medication Maintenance issues -Orders home meds: chronic medication -Nutrition: regular diet -Martinez catheter - not indicated -DVT: SCD -PPI; IV Protonix 40mg daily -consult to OT for discharge planning -consult to PT for evaluation -consult to Spiritual CODE STATUS: FULL Admission status: Admit to ICU Med-Surg. overflow Admission justification. This patient will be admitted for inpatient services and is medically appropriate meeting medical necessity for inpatient admission as outlined in my documentation. I reasonably expect the patient will require inpatient services that span. Time over 2 midnights. I reasonably expect this patient to be discharged or transferred within 96 hours after admission to the critical access hospital. Disposition: home with Primary care provider: Niles Leroy CNP., [facility] Hospitalist: Dr. Zhang - Mortality Measure Prognosis:: Good
[2019-06-15] MEDS ORDERED: Lidocaine 2% Viscous Solution 15 ML Cup PO PRN (03:26)
[2019-06-15] MEDS ORDERED: Sodium Chloride 0.9% 1,000 ML IV SCH ×2 (03:26→09:45)
[2019-06-15] MEDS ORDERED: Morphine 2 MG/ML Syringe IVPUSH PRN (03:26)
[2019-06-15] MEDS ORDERED: Albuterol 0.083% 2.5 MG/3 ML Neb Soln NEB PRN (03:26)
[2019-06-15] MEDS ORDERED: Ondansetron 4 MG Tab.DIS PO PRN (03:26)
[2019-06-15] MEDS ORDERED: Docusate Sodium 100 MG Cap PO PRN (03:26)
[2019-06-15] MEDS ORDERED: Ondansetron 4 MG/2 ML SDV IV PRN (03:26)
--- NOTE | 2019-06-15 09:39 | PCM.PN ---
- General Info Date of Service: 06/15/19 Subjective Update: Ms. Valdovinos is an 84-year-old woman who was admitted through the emergency department early this morning with weakness and recent falls secondary to underlying urinary tract infection. She feels somewhat improved this morning after having received IV fluids for hydration. Functional Status: Reports: Tolerating Diet, Urinating - Review of Systems General: Reports: Weakness, Malaise. Denies: Fever, Chills Pulmonary: Reports: No Symptoms Cardiovascular: Reports: No Symptoms Gastrointestinal: Reports: No Symptoms - Patient Data Vitals - Most Recent: Last Vital Signs Temp 97.2 F 06/15/19 07:26 Pulse 61 06/15/19 07:26 Resp 15 06/15/19 07:26 BP 147/58 H 06/15/19 07:26 Pulse Ox 96 06/15/19 07:26 Weight - Most Recent: 100 lb Lab Results Last 24 Hours: Laboratory Results - last 24 hr 06/14/19 06/14/19 06/14/19 Range/Units 23:39 23:39 23:39 WBC 9.7 (4.5-11.0) K/uL RBC 3.91 (3.30-5.50) M/uL Hgb 12.3 (12.0-15.0) g/dL Hct 36.5 (36.0-48.0) % MCV 93 (80-98) fL MCH 32 H (27-31) pg MCHC 34 (32-36) % Plt Count 152 (150-400) K/uL Sodium 127 L (140-148) mmol/L Potassium 4.3 (3.6-5.2) mmol/L Chloride 93 L (100-108) mmol/L Carbon Dioxide 30 (21-32) mmol/L Anion Gap 8.3 (5.0-14.0) mmol/L BUN 15 (7-18) mg/dL Creatinine 0.9 (0.6-1.0) mg/dL Est Cr Clr Drug Dosing 34.51 mL/min Estimated GFR (MDRD) 60 (>60) Glucose 118 H (74-106) mg/dL Calcium 8.4 L (8.5-10.1) mg/dL Phosphorus (2.5-4.9) mg/dL Magnesium 1.7 L (1.8-2.4) mg/dL Total Bilirubin 1.0 D (0.2-1.0) mg/dL AST 22 (15-37) U/L ALT 12 (12-78) U/L Alkaline Phosphatase 58 (46-116) U/L Total Protein 6.9 (6.4-8.2) g/dL Albumin 2.9 L (3.4-5.0) g/dL Globulin 4.0 H (2.3-3.5) g/dL Albumin/Globulin Ratio 0.7 L (1.2-2.2) Urine Color (YELLOW) Urine Appearance (CLEAR) Urine pH (5.0-8.0) Ur Specific Marshall (1.008-1.030) Urine Protein (NEGATIVE) mg/dL Urine Glucose (UA) (NEGATIVE) mg/dL Urine Ketones (NEGATIVE) mg/dL Urine Occult Blood (NEGATIVE) Urine Nitrite (NEGATIVE) Urine Bilirubin (NEGATIVE) Urine Urobilinogen (0.2-1.0) EU/dL Ur Leukocyte Esterase (NEGATIVE) Urine RBC (0-5) Urine WBC (0-5) Ur Epithelial Cells Amorphous Sediment Urine Bacteria Urine Mucus 06/14/19 06/15/19 Range/Units 23:58 00:12 WBC (4.5-11.0) K/uL RBC (3.30-5.50) M/uL Hgb (12.0-15.0) g/dL Hct (36.0-48.0) % MCV (80-98) fL MCH (27-31) pg MCHC (32-36) % Plt Count (150-400) K/uL Sodium (140-148) mmol/L Potassium (3.6-5.2) mmol/L Chloride (100-108) mmol/L Carbon Dioxide (21-32) mmol/L Anion Gap (5.0-14.0) mmol/L BUN (7-18) mg/dL Creatinine (0.6-1.0) mg/dL Est Cr Clr Drug Dosing mL/min Estimated GFR (MDRD) (>60) Glucose (74-106) mg/dL Calcium (8.5-10.1) mg/dL Phosphorus 2.6 (2.5-4.9) mg/dL Magnesium (1.8-2.4) mg/dL Total Bilirubin (0.2-1.0) mg/dL AST (15-37) U/L ALT (12-78) U/L Alkaline Phosphatase (46-116) U/L Total Protein (6.4-8.2) g/dL Albumin (3.4-5.0) g/dL Globulin (2.3-3.5) g/dL Albumin/Globulin Ratio (1.2-2.2) Urine Color Yellow (YELLOW) Urine Appearance Cloudy A (CLEAR) Urine pH 7.0 (5.0-8.0) Ur Specific Marshall 1.015 (1.008-1.030) Urine Protein 100 H (NEGATIVE) mg/dL Urine Glucose (UA) Negative (NEGATIVE) mg/dL Urine Ketones Negative (NEGATIVE) mg/dL Urine Occult Blood Moderate H (NEGATIVE) Urine Nitrite Positive H (NEGATIVE) Urine Bilirubin Negative (NEGATIVE) Urine Urobilinogen 0.2 (0.2-1.0) EU/dL Ur Leukocyte Esterase Large H (NEGATIVE) Urine RBC 0-5 (0-5) Urine WBC Packed H (0-5) Ur Epithelial Cells Not seen Amorphous Sediment Few Urine Bacteria Moderate Urine Mucus Not seen Med Orders - Current: Current Medications Albuterol (Proventil Neb Soln) 2.5 mg NEB Q4H PRN PRN Reason: Shortness Of Breath/wheezing Aspirin (Halfprin) 81 mg PO DAILY [facility] Cyanocobalamin (Vitamin B12) 1,000 mcg IM .[id number] [facility] Docusate Sodium (Colace) 100 mg PO BID PRN PRN Reason: Constipation Ceftriaxone Sodium 1 gm/ (Sodium Chloride) 50 mls @ 100 mls/hr IV Q24H [facility] Magnesium Sulfate 2 gm/ Premix 50 mls @ 25 mls/hr IV ONETIME ONE Stop: 06/15/19 11:31 Sodium Chloride (Normal Saline) 1,000 mls @ 50 mls/hr IV ASDIRECTED [facility] Lidocaine HCl (Xylocaine 2% Viscous) 15 ml PO ASDIRECTED PRN PRN Reason: PAIN Magnesium Oxide (Magnesium Oxide) 400 mg PO BID [facility] Metoprolol Succinate (Toprol Xl) 25 mg PO DAILY [facility] Morphine Sulfate (Morphine) 2 mg IVPUSH Q2H PRN PRN Reason: Pain (severe 7-10) Ondansetron HCl (Zofran Odt) 4 mg PO Q6H PRN PRN Reason: Nausea able to take PO Ondansetron HCl (Zofran) 4 mg IV Q4H PRN PRN Reason: Nausea/Vomiting Oxycodone HCl (Oxycodone) 10 mg PO Q4H PRN PRN Reason: Pain Pantoprazole Sodium (Protonix Iv) 40 mg IV DAILY [facility] Pregabalin (Lyrica) 300 mg PO BEDTIME [facility] Discontinued Medications Ceftriaxone Sodium 1 gm/ (Sodium Chloride) 50 mls @ 100 mls/hr IV ONETIME ONE Stop: 06/15/19 00:39 Last Admin: 06/15/19 00:58 Dose: 100 mls/hr Lactated Ringer's (Ringers, Lactated) 500 mls @ 500 mls/hr IV .BOLUS [facility] Sodium Chloride (Normal Saline) 500 mls @ 500 mls/hr IV ASDIRECTED [facility] Sodium Chloride (Normal Saline) 1,000 mls @ 100 mls/hr IV ASDIRECTED [facility] Last Admin: 06/15/19 04:00 Dose: 100 mls/hr Sodium Chloride (Normal Saline) 500 ml IV NOW STA Stop: 06/15/19 01:47 Last Admin: 06/15/19 01:56 Dose: Not Given - Exam Quality Assessment: DVT Prophylaxis General: Alert, Oriented, Cooperative, Mild Distress Lungs: Clear to Auscultation, Normal Respiratory Effort Cardiovascular: Regular Rate, Regular Rhythm, No Murmurs GI/Abdominal Exam: Soft, Non-Tender, No Organomegaly, No Distention Extremities: Non-Tender, No Pedal Edema - Problem List Review Problem List Initiated/Reviewed/Updated: Yes - My Orders Last 24 Hours: My Active Orders 06/15/19 09:32 Magnesium Sulfate/Water [Magnesium Sulfate in Water Premix] 2 gm Premix Bag 1 bag IV ONETIME 06/15/19 09:45 Magnesium Oxide 400 mg PO BID Sodium Chloride 0.9% @ 50 MLS/HR(1000ml) Sodium Chloride 0.9% [Normal Saline] 1 ,000 ml IV ASDIRECTED 06/16/19 05:00 BASIC METABOLIC PANEL,BMP [CHEM] Timed MAGNESIUM [CHEM] Timed - Plan Plan:: ASSESSMENT / PLAN Urinary Tract Infection -IV Fluids for rehydration Normal Saline decrease rate to 50 mL per hour -IV Antibiotic; Rocephin 1 gram IV every 24 hours -Tylenol, Motrin or Oxycodone for pain control -urine culture pending Hypertension -continue home medication Burning mouth syndrome and chronic pain -continue home medication Maintenance issues -Nutrition: regular diet -Martinez catheter - not indicated -DVT: SCD -PPI; IV Protonix 40mg daily -consult to OT for discharge planning -consult to PT for evaluation -consult to Spiritual CODE STATUS: FULL Admission status: Admit to ICU Med-Surg. overflow Admission justification. This patient will be admitted for inpatient services and is medically appropriate meeting medical necessity for inpatient admission as outlined in my documentation. I reasonably expect the patient will require inpatient services that span. Time over 2 midnights. I reasonably expect this patient to be discharged or transferred within 96 hours after admission to the critical access hospital. Disposition: home with Primary care provider: Niles Leroy CNP., [facility] Hospitalist: Dr. Zhang
[2019-06-15] MEDS: Aspirin 81 MG Tab.EC PO SCH (09:52)
[2019-06-15] MEDS: Metoprolol Succinate 25 MG Tab.ER PO SCH (09:52)
[2019-06-15] MEDS: Magnesium Oxide 400 MG Tab PO SCH ×2 (09:53→21:05)
[2019-06-15] MEDS: Pantoprazole 40 MG Vial IV SCH (09:53)
[2019-06-15] MEDS ORDERED: Magnesium Sulfate/Water 2 GM in Premix Bag 1 BAG IV ONE (10:00)
[2019-06-15] MEDS: Lidocaine 2% Viscous Solution 15 ML Cup PO SCH ×2 (16:05→21:05)
[2019-06-15] MEDS: Pregabalin 100 MG Cap PO SCH (21:09)
[2019-06-15] MEDS: oxyCODONE 5 MG Tab PO PRN (22:31)
[2019-06-15] MEDS: cefTRIAXone 1 GM in Sodium Chloride 0.9% 50 ML IV SCH (23:45)
[2019-06-16] MEDS: oxyCODONE 5 MG Tab PO PRN ×2 (02:39→20:02)
[2019-06-16] MEDS: Aspirin 81 MG Tab.EC PO SCH (08:56)
[2019-06-16] MEDS: Magnesium Oxide 400 MG Tab PO SCH ×2 (08:57→20:02)
[2019-06-16] MEDS: Pantoprazole 40 MG Vial IV SCH (08:57)
[2019-06-16] MEDS: Lidocaine 2% Viscous Solution 15 ML Cup PO SCH ×3 (08:57→20:04)
[2019-06-16] MEDS: Metoprolol Succinate 25 MG Tab.ER PO SCH (08:58)
--- NOTE | 2019-06-16 11:45 | PCM.PN ---
- General Info Date of Service: 06/16/19 Subjective Update: Ms. Valdovinos has been stable since yesterday, appetite seems to be improved as well as overall strength. She remains pleasantly confused and is unable to provide meaningful information concerning symptoms or review of systems. - Patient Data Vitals - Most Recent: Last Vital Signs Temp 97.1 F 06/16/19 11:12 Pulse 61 06/16/19 11:12 Resp 16 06/16/19 11:12 BP 159/65 H 06/16/19 11:12 Pulse Ox 97 06/16/19 11:12 Weight - Most Recent: 110 lb 8.001 oz I&O - Last 24 Hours: Intake & Output 06/15/19 06/16/19 06/16/19 22:59 06:59 14:59 Intake Total 91 Output Total 600 Balance -509 Lab Results Last 24 Hours: Laboratory Results - last 24 hr 06/16/19 Range/Units 06:08 Sodium 138 L (140-148) mmol/L Potassium 3.6 (3.6-5.2) mmol/L Chloride 104 (100-108) mmol/L Carbon Dioxide 28 (21-32) mmol/L Anion Gap 9.6 (5.0-14.0) mmol/L BUN 9 (7-18) mg/dL Creatinine 0.6 (0.6-1.0) mg/dL Est Cr Clr Drug Dosing 57.20 mL/min Estimated GFR (MDRD) > 60 (>60) Glucose 84 (74-106) mg/dL Calcium 7.9 L (8.5-10.1) mg/dL Magnesium 2.1 (1.8-2.4) mg/dL Bear Results Last 24 Hours: Microbiology 06/15/19 00:30 Urine Culture - Preliminary Urine, Catheterized Med Orders - Current: Current Medications Albuterol (Proventil Neb Soln) 2.5 mg NEB Q4H PRN PRN Reason: Shortness Of Breath/wheezing Aspirin (Halfprin) 81 mg PO DAILY [facility]EL Last Admin: 06/16/19 08:56 Dose: 81 mg Cyanocobalamin (Vitamin B12) 1,000 mcg IM .[id number] [facility] Docusate Sodium (Colace) 100 mg PO BID PRN PRN Reason: Constipation Ceftriaxone Sodium 1 gm/ (Sodium Chloride) 50 mls @ 100 mls/hr IV Q24H [facility] Last Admin: 06/15/19 23:45 Dose: 100 mls/hr Lidocaine HCl (Xylocaine 2% Viscous) 15 ml PO ASDIRECTED PRN PRN Reason: PAIN Last Admin: 06/15/19 11:36 Dose: 15 ml Lidocaine HCl (Xylocaine 2% Viscous) 5 ml PO TID [facility] Last Admin: 06/16/19 08:57 Dose: 5 ml Magnesium Oxide (Magnesium Oxide) 400 mg PO BID [facility] Last Admin: 06/16/19 08:57 Dose: 400 mg Metoprolol Succinate (Toprol Xl) 25 mg PO DAILY [facility] Last Admin: 06/16/19 08:58 Dose: 25 mg Morphine Sulfate (Morphine) 2 mg IVPUSH Q2H PRN PRN Reason: Pain (severe 7-10) Ondansetron HCl (Zofran Odt) 4 mg PO Q6H PRN PRN Reason: Nausea able to take PO Ondansetron HCl (Zofran) 4 mg IV Q4H PRN PRN Reason: Nausea/Vomiting Oxycodone HCl (Oxycodone) 10 mg PO Q4H PRN PRN Reason: Pain Last Admin: 06/16/19 02:39 Dose: 10 mg Pantoprazole Sodium (Protonix Iv) 40 mg IV DAILY [facility] Last Admin: 06/16/19 08:57 Dose: 40 mg Pregabalin (Lyrica) 300 mg PO BEDTIME [facility] Last Admin: 06/15/19 21:09 Dose: 300 mg Discontinued Medications Ceftriaxone Sodium 1 gm/ (Sodium Chloride) 50 mls @ 100 mls/hr IV ONETIME ONE Stop: 06/15/19 00:39 Last Admin: 06/15/19 00:58 Dose: 100 mls/hr Lactated Ringer's (Ringers, Lactated) 500 mls @ 500 mls/hr IV .BOLUS [facility] Sodium Chloride (Normal Saline) 500 mls @ 500 mls/hr IV ASDIRECTED [facility] Sodium Chloride (Normal Saline) 1,000 mls @ 100 mls/hr IV ASDIRECTED [facility] Last Admin: 06/15/19 04:00 Dose: 100 mls/hr Magnesium Sulfate 2 gm/ Premix 50 mls @ 25 mls/hr IV ONETIME ONE Stop: 06/15/19 11:59 Last Admin: 06/15/19 09:53 Dose: 25 mls/hr Sodium Chloride (Normal Saline) 1,000 mls @ 50 mls/hr IV ASDIRECTED [facility] Last Admin: 06/15/19 16:03 Dose: 50 mls/hr Sodium Chloride (Normal Saline) 500 ml IV NOW STA Stop: 06/15/19 01:47 Last Admin: 06/15/19 01:56 Dose: Not Given - Exam Quality Assessment: DVT Prophylaxis General: Alert, Cooperative, No Acute Distress. No: Oriented Lungs: Clear to Auscultation, Normal Respiratory Effort Cardiovascular: Regular Rate, Regular Rhythm, No Murmurs GI/Abdominal Exam: Soft, Non-Tender, No Organomegaly, No Distention Extremities: Non-Tender, No Pedal Edema - Problem List Review Problem List Initiated/Reviewed/Updated: Yes - My Orders Last 24 Hours: My Active Orders 06/15/19 16:00 Lidocaine 2% [Xylocaine 2% Viscous] 5 ml PO TID 06/16/19 11:41 Convert IV to Saline Lock [OM.PC] Routine - Plan Plan:: ASSESSMENT / PLAN Urinary Tract Infection-improved from admission, anticipate discharge to home tomorrow -Saline lock IV -IV Antibiotic; Rocephin 1 gram IV every 24 hours -Tylenol, Motrin or Oxycodone for pain control -urine culture pending Hypertension -continue home medication Burning mouth syndrome and chronic pain -continue home medication Maintenance issues -Nutrition: regular diet -Martinez catheter - not indicated -DVT: SCD -PPI; IV Protonix 40mg daily -consult to OT for discharge planning -consult to PT for evaluation -consult to Spiritual CODE STATUS: FULL Admission status: Admit to ICU Med-Surg. overflow Admission justification. This patient will be admitted for inpatient services and is medically appropriate meeting medical necessity for inpatient admission as outlined in my documentation. I reasonably expect the patient will require inpatient services that span. Time over 2 midnights. I reasonably expect this patient to be discharged or transferred within 96 hours after admission to the critical access hospital. Disposition: home with Primary care provider: Niles Leroy CNP., [facility] Hospitalist: Dr. Zhang
[2019-06-16] MEDS: Pregabalin 100 MG Cap PO SCH (20:02)
[2019-06-16] MEDS: cefTRIAXone 1 GM in Sodium Chloride 0.9% 50 ML IV SCH (23:10)
[2019-06-17] MEDS: oxyCODONE 5 MG Tab PO PRN (02:22)
[2019-06-17] MEDS ORDERED: Pantoprazole 40 MG Tab.CR PO SCH (07:30)
[2019-06-17] MEDS: Metoprolol Succinate 25 MG Tab.ER PO SCH (09:55)
[2019-06-17] MEDS: Lidocaine 2% Viscous Solution 15 ML Cup PO SCH ×2 (09:55→14:32)
[2019-06-17] MEDS: Magnesium Oxide 400 MG Tab PO SCH (09:55)
[2019-06-17] MEDS: Aspirin 81 MG Tab.EC PO SCH (09:55)
[2019-06-17 09:59] VITALS: PULSE 62
[2019-06-17] MEDS ORDERED: Cephalexin 250 MG Cap PO SCH (10:00)
[2019-06-17 10:57] VITALS: BP 167/69
--- NOTE | 2019-06-17 12:48 | PCM.DCSUM1 ---
Discharge Summary - Hospital Course Brief History: Ms. Valdovinos is an 84-year-old woman who was admitted through the emergency department with weakness and recent falls secondary to underlying urinary tract infection. - Discharge Data Discharge Date: 06/17/19 Discharge Disposition: Home, Self-Care 01 Condition: Stable - Referral to Home Health Primary Care Physician: PCP None - Discharge Diagnosis/Problem(s) (1) Weakness SNOMED Code(s): 25303846 ICD Code: R53.1 - WEAKNESS Status: Acute Current Visit: Yes (2) UTI (urinary tract infection) SNOMED Code(s): 95955888 ICD Code: N39.0 - URINARY TRACT INFECTION, SITE NOT SPECIFIED Status: Acute Current Visit: Yes Qualifiers: Urinary tract infection type: acute cystitis Hematuria presence: with hematuria Qualified Code(s): N30.01 - Acute cystitis with hematuria - Patient Summary/Data Consults: Consultations 06/15/19 03:26 Consult to Spiritual Care [CONS] Routine Spiritual Care Reason for Consult: New Diagnosis Special Instructions: daily prayers for illness OT Evaluation and Treatment [CONS] Routine Please Evaluate and Treat. OT Reason for Consult: Discharge Planning This query below is only for informational purposes and is not editable. PT Evaluation and Treatment [CONS] Routine Please Evaluate and Treat. PT Reason for Consult: Strengthening This query below is only for informational purposes and is not editable. Hospital Course: Ms. Valdovinos is an 84-year-old woman who was admitted through the emergency department with weakness and recent fall secondary to underlying urinary tract infection. She had become progressively more weak at home and during the 24- hour period prior to admission had experienced 2 falls. She was brought into the emergency department for further evaluation, vital signs were found to be within normal range and she was afebrile. White blood cell count was within normal range and there were no significant laboratory abnormalities. She was felt to be dehydrated and urinalysis showed definite evidence of underlying urinary tract infection. Urine culture was obtained on admission and she was started on IV antibiotic therapy with ceftriaxone. She was given IV fluids for hydration during the initial part of her hospitalization. She was seen daily by physical therapy and overall strength and improved by the time of discharge. Initially was felt that she may require long-term placement but she improved enough and requested discharge to home with home care follow-up including home physical therapy and occupational therapy. Urine culture grew out Escherichia coli which was pansensitive. She will be discharged home with an additional 2 days of oral antibiotic therapy with cephalexin. Activity will be as tolerated and she will resume her usual diet. Follow-up appointment will be scheduled with her primary care provider within one week. - Patient Instructions Diet: Usual Diet as Tolerated Activity: As Tolerated Other/Special Instructions: Please schedule follow-up appointment with primary care provider within one week. - Discharge Plan *PRESCRIPTION DRUG MONITORING PROGRAM REVIEWED*: No *COPY OF PRESCRIPTION DRUG MONITORING REPORT IN PATIENT LALA: No Prescriptions/Med Rec: cephALEXin [Keflex] 250 mg PO Q6HR #8 cap Home Medications: Home Meds Cyanocobalamin (Vitamin B-12) [Cyanocobalamin Injection] 1,000 mcg IM .[id number] 06/29/13 [History] Metoprolol Succinate [Toprol XL] 25 mg PO DAILY 06/29/13 [History] Aspirin [Low Dose Aspirin EC] 81 mg PO DAILY 07/21/13 [History] Pregabalin [Lyrica] 300 mg PO BEDTIME 09/14/15 [History] oxyCODONE 10 mg PO Q4H PRN 09/14/15 [History] Lidocaine 2% [Xylocaine 2% Viscous] 15 ml PO ASDIRECTED 07/13/16 [History] cephALEXin [Keflex] 250 mg PO Q6HR #8 cap 06/17/19 [Rx] Referrals: Niles Leroy, [employer]DER [Nurse Practitioner] - 06/22/19 2:20 pm - Discharge Summary/Plan Comment DC Time >30 min.: No - Patient Data Vitals - Most Recent: Last Vital Signs Temp 97 F 06/17/19 10:55 Pulse 62 06/17/19 10:55 Resp 16 06/17/19 10:55 BP 167/69 H 06/17/19 10:55 Pulse Ox 97 06/17/19 10:55 Weight - Most Recent: 110 lb 8.001 oz I&O - Last 24 hours: Intake & Output 06/16/19 06/17/19 06/17/19 22:59 06:59 14:59 Intake Total 240 1410 Output Total 75 Balance 165 1410 [place] Results - Last 24 hrs: Microbiology 06/15/19 00:30 Urine Culture - Final Urine, Catheterized Escherichia Coli Med Orders - Current: Current Medications Albuterol (Proventil Neb Soln) 2.5 mg NEB Q4H PRN PRN Reason: Shortness Of Breath/wheezing Aspirin (Halfprin) 81 mg PO DAILY [facility] Last Admin: 06/17/19 09:55 Dose: 81 mg Cephalexin (Keflex) 250 mg PO Q6HR [facility] Last Admin: 06/17/19 11:17 Dose: 250 mg Cyanocobalamin (Vitamin B12) 1,000 mcg IM .[id number] [facility] Docusate Sodium (Colace) 100 mg PO BID PRN PRN Reason: Constipation Lidocaine HCl (Xylocaine 2% Viscous) 15 ml PO ASDIRECTED PRN PRN Reason: PAIN Last Admin: 06/15/19 11:36 Dose: 15 ml Lidocaine HCl (Xylocaine 2% Viscous) 5 ml PO TID [facility] Last Admin: 06/17/19 09:55 Dose: 5 ml Magnesium Oxide (Magnesium Oxide) 400 mg PO BID [facility] Last Admin: 06/17/19 09:55 Dose: 400 mg Metoprolol Succinate (Toprol Xl) 25 mg PO DAILY [facility] Last Admin: 06/17/19 09:55 Dose: 25 mg Morphine Sulfate (Morphine) 2 mg IVPUSH Q2H PRN PRN Reason: Pain (severe 7-10) Ondansetron HCl (Zofran Odt) 4 mg PO Q6H PRN PRN Reason: Nausea able to take PO Ondansetron HCl (Zofran) 4 mg IV Q4H PRN PRN Reason: Nausea/Vomiting Oxycodone HCl (Oxycodone) 10 mg PO Q4H PRN PRN Reason: Pain Last Admin: 06/17/19 02:22 Dose: 10 mg Pantoprazole Sodium (Protonix) 40 mg PO ACBREAKFAST [facility] Last Admin: 06/17/19 07:24 Dose: 40 mg Pregabalin (Lyrica) 300 mg PO BEDTIME [facility] Last Admin: 06/16/19 20:02 Dose: 300 mg Discontinued Medications Ceftriaxone Sodium 1 gm/ (Sodium Chloride) 50 mls @ 100 mls/hr IV ONETIME ONE Stop: 06/15/19 00:39 Last Admin: 06/15/19 00:58 Dose: 100 mls/hr Lactated Ringer's (Ringers, Lactated) 500 mls @ 500 mls/hr IV .BOLUS [facility] Sodium Chloride (Normal Saline) 500 mls @ 500 mls/hr IV ASDIRECTED [facility] Ceftriaxone Sodium 1 gm/ (Sodium Chloride) 50 mls @ 100 mls/hr IV Q24H [facility] Last Admin: 06/16/19 23:10 Dose: 100 mls/hr Sodium Chloride (Normal Saline) 1,000 mls @ 100 mls/hr IV ASDIRECTED [facility] Last Admin: 06/15/19 04:00 Dose: 100 mls/hr Magnesium Sulfate 2 gm/ Premix 50 mls @ 25 mls/hr IV ONETIME ONE Stop: 06/15/19 11:59 Last Admin: 06/15/19 09:53 Dose: 25 mls/hr Sodium Chloride (Normal Saline) 1,000 mls @ 50 mls/hr IV ASDIRECTED [facility] Last Admin: 06/15/19 16:03 Dose: 50 mls/hr Pantoprazole Sodium (Protonix Iv) 40 mg IV DAILY [facility] Last Admin: 06/16/19 08:57 Dose: 40 mg Sodium Chloride (Normal Saline) 500 ml IV NOW STA Stop: 06/15/19 01:47 Last Admin: 06/15/19 01:56 Dose: Not Given - Exam Quality Assessment: Reports: DVT Prophylaxis General: Reports: Alert, Oriented, Cooperative, No Acute Distress Lungs: Reports: Clear to Auscultation, Normal Respiratory Effort Cardiovascular: Reports: Regular Rate, Regular Rhythm, No Murmurs GI/Abdominal Exam: Soft, Non-Tender, No Organomegaly, No Distention Extremities: Non-Tender, No Pedal Edema
[2019-06-26] MEDS ORDERED: Cyanocobalamin (Vitamin B12) 1,000 MCG/ML SDV IM SCH (09:00)
== END 2019-06-17 14:15 | disposition home or self-care (01) | DRG 690 ==
LOC: JP.ED 23:21 → UNDOADMIN 06-15 02:36 → JP.ICU 06-15 02:36 → JP.MS 06-15 14:22 → UNDODISIN 06-17 14:15
PROVIDERS: ADMIT Hospitalist; ATTEND Hospitalist
DX: N30.01 Acute cystitis with hematuria (principal); D59.1 Other autoimmune hemolytic anemias; R41.82 Altered mental status, unspecified; B96.20 Unspecified Escherichia coli [E. coli] as the cause of diseases classified elsewhere; G50.0 Trigeminal neuralgia; R53.1 Weakness; R30.0 Dysuria; M54.2 Cervicalgia; I48.91 Unspecified atrial fibrillation; E78.00 Pure hypercholesterolemia, unspecified; I10 Essential (primary) hypertension; M81.0 Age-related osteoporosis without current pathological fracture; H91.90 Unspecified hearing loss, unspecified ear; G43.909 Migraine, unspecified, not intractable, without status migrainosus; I48.0 Paroxysmal atrial fibrillation; E03.9 Hypothyroidism, unspecified; E55.9 Vitamin D deficiency, unspecified; Z86.718 Personal history of other venous thrombosis and embolism; R51 Headache; I47.1 Supraventricular tachycardia; I70.1 Atherosclerosis of renal artery; K14.6 Glossodynia; G89.4 Chronic pain syndrome; W19.XXXA Unspecified fall, initial encounter; Z79.899 Other long term (current) drug therapy; R53.81 Other malaise; R26.9 Unspecified abnormalities of gait and mobility; Z79.82 Long term (current) use of aspirin; Z88.0 Allergy status to penicillin; Z88.8 Allergy status to other drugs, medicaments and biological substances; Z90.49 Acquired absence of other specified parts of digestive tract
CPT/HCPCS: 36415; 70450; 71045; 72125; 80053; 81001; 83735; 84100; 85027; 87086; 87088; 87186; 93005; 93010; J0696; J7050; 80048; 96365; 97110-GP; 97162-GP; 97165-GO; 97530-GP; 99283; 99285-25; A9270-GY; C9113; J3475; J7030

== ENCOUNTER 2020-12-08 13:54 | Observation (INO) | payer MEDICARE, BC ==
[2020-12-08] MEDS ORDERED: Verapamil 5 MG/2 ML SDV IVPUSH ONE (14:00)
--- NOTE | 2020-12-08 14:07 | EDM.PDOC ---
ED HPI GENERAL MEDICAL PROBLEM - General Chief Complaint: Cardiovascular Problem Stated Complaint: MEDICAL VIA [place] - CHEST PAIN Time Seen by Provider: 12/08/20 14:00 Source of Information: Reports: Patient, EMS History Limitations: Reports: No Limitations - History of Present Illness INITIAL COMMENTS - FREE TEXT/NARRATIVE: 85-year-old female having chest pain this morning and palpitations, she was picked up and found to have SVT. She converted twice with Adenosing in route, but shortly after arriving she went back into SVT. It causes her chest pressure and discomfort but no significant shortness of breath and no significant sensation of palpitations. She was having this problem yesterday to but it was coming out of it, today it is more persistent. She used to be on metoprolol to suppress SVT but stopped it at some point. She is adamant that she does not want transfer, she wants to just be kept comfortable and is DNR. Onset: Unknown/Unsure Duration: Chronic Location: Reports: Chest Associated Symptoms: Reports: Chest Pain, Malaise, Weakness. Denies: Confusion, Cough, Fever/Chills, Headaches, Nausea/Vomiting Treatments MANAGER TRAVEL: Reports: Aspirin, IV/IO, Oxygen Middle Chest Pain Score (Numeric/FACES): 5 - Related Data Allergies Allergy/AdvReac Type Severity Reaction Status Date / Time amlodipine Allergy Cannot Verified 12/08/20 14:17 Remember carbamazepine [From Tegretol] Allergy Dizziness Verified 12/08/20 14:17 Penicillins Allergy Hives Verified 12/08/20 14:17 Home Meds: Home Meds Pregabalin [Lyrica] 300 mg PO BEDTIME 09/14/15 [History] oxyCODONE 10 mg PO Q4H PRN 09/14/15 [History] Lidocaine 2% [Xylocaine 2% Viscous] 15 ml PO ASDIRECTED 07/13/16 [History] Past Medical History HEENT History: Reports: Hard of Hearing, Other (See Below) Other HEENT History: mouth pain, left face pain. burning mouth syndrome Cardiovascular History: Reports: Afib, Blood Clots/VTE/DVT, High Cholesterol, Hypertension Other Cardiovascular History: paroxysmal supraventricular tachycardia Genitourinary History: Reports: Other (See Below) Other Genitourinary History: renal artery stenosis [employer] History: Reports: Musculoskeletal History: Reports: Osteoporosis Neurological History: Reports: Migraines Other Neuro History: n Endocrine/Metabolic History: Reports: Hypothyroidism, Vitamin D Deficiency Hematologic History: Reports: Anemia Other Hematologic History: Autoimmune hemolytic anemia - Infectious Disease History Infectious Disease History: Reports: Chicken Pox, Measles, Mumps - Past Surgical History GI Surgical History: Reports: Cholecystectomy Other Musculoskeletal Surgeries/Procedures:: rigth foot fracture Social & Family History - Family History Family Medical History: No Pertinent Family History - Caffeine Use Caffeine Use: Reports: None - Living Situation & Occupation Living situation: Reports: 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 Denies: Fever, Chills HEENT: Reports: Other (Chronic sore mouth) Respiratory: Reports: Shortness of Breath (Minimal shortness of breath during SVT). Denies: Cough Cardiovascular: Reports: Chest Pain GI/Abdominal: Denies: Nausea, Vomiting : Reports: No Symptoms Skin: Reports: No Symptoms Neurological: Reports: Weakness ED EXAM, GENERAL - Physical Exam Exam: See Below Exam Limited By: No Limitations General Appearance: Alert, No Apparent Distress Eye Exam: Bilateral Eye: EOMI Head: Atraumatic Respiratory/Chest: No Respiratory Distress, Lungs Clear Cardiovascular: Tachycardia GI/Abdominal: Soft, Other (Some vague discomfort with palpation of the upper abdomen but no focal guarding or isolated tenderness) Extremities: Other (Symmetric lower extremity edema) Neurological: Alert, Oriented Psychiatric: Depressed Mood, Flat Affect Skin Exam: Warm, Dry Course - Vital Signs Last Recorded V/S: Last Vital Signs Temp 97.9 F 12/08/20 13:54 Pulse 165 H 12/08/20 14:28 Resp 22 H 12/08/20 15:35 BP 124/71 12/08/20 15:35 Pulse Ox 92 L 12/08/20 15:35 - Orders/Labs/Meds Orders: Active Orders 24 hr Category Date Time Status Sodium Chloride 0.9% [Normal Saline] 500 ml Med 12/08/20 14:15 Active IV ASDIRECTED Medication Orders Sodium Chloride (Normal Saline) 500 mls @ 1,000 mls/hr IV ASDIRECTED [facility] Last Admin: 12/08/20 14:18 Dose: 1,000 mls/hr Documented by: RONN Amiodarone HCl 450 mg/ (Dextrose/Water) 250 mls @ 33.333 mls/hr IV ASDIRECTED [facility]; Protocol Last Admin: 12/08/20 15:50 Dose: 1 mg/min, 33.333 mls/hr Documented by: JACQUIEDAVID Labs: Laboratory Tests 12/08/20 12/08/20 Range/Units 14:29 14:29 WBC 9.7 (4.5-11.0) K/uL RBC 3.67 (3.30-5.50) M/uL Hgb 11.8 L (12.0-15.0) g/dL Hct 35.3 L (36.0-48.0) % MCV 96 (80-98) fL MCH 32 H (27-31) pg MCHC 33 (32-36) % Plt Count 172 (150-400) K/uL Neut % (Auto) 76 H (36-66) % Lymph % (Auto) 11 L (24-44) % [place] % (Auto) 13 H (2-6) % Eos % (Auto) 0 L (2-4) % Baso % (Auto) 0 (0-1) % Sodium 139 L (140-148) mmol/L Potassium 4.2 (3.6-5.2) mmol/L Chloride 105 (100-108) mmol/L Carbon Dioxide 25 (21-32) mmol/L Anion Gap 13.2 (5.0-14.0) mmol/L BUN 13 (7-18) mg/dL Creatinine 1.0 D (0.6-1.0) mg/dL Est Cr Clr Drug Dosing TNP Estimated GFR (MDRD) 53 L (>60) Glucose 123 H (74-106) mg/dL Calcium 8.1 L (8.5-10.1) mg/dL Total Bilirubin 0.6 (0.2-1.0) mg/dL AST 25 (15-37) U/L ALT 21 (12-78) U/L Alkaline Phosphatase 54 (46-116) U/L Troponin I 0.047 (0.000-0.056) ng/mL Total Protein 6.1 L (6.4-8.2) g/dL Albumin 2.7 L (3.4-5.0) g/dL Globulin 3.4 (2.3-3.5) g/dL Albumin/Globulin Ratio 0.8 L (1.2-2.2) Meds: Medications Generic Name Dose Route Start Last Admin Trade Name Freq PRN Reason Stop Dose Admin Sodium Chloride 500 mls @ 1,000 mls/hr 12/08/20 14:15 12/08/20 14:18 Normal Saline IV 1,000 mls/hr ASDIRECTED [facility] Administration Amiodarone HCl 450 mg/ 250 mls @ 33.333 mls/hr 12/08/20 15:30 12/08/20 15:50 Dextrose/Water IV 1 mg/min ASDIRECTED ISHMA[facility] 33.333 mls/hr Administration Protocol 1 MG/MIN Discontinued Medications Generic Name Dose Route Start Last Admin Trade Name Freq PRN Reason Stop Dose Admin Amiodarone HCl 150 mg 12/08/20 15:30 12/08/20 15:46 Amiodarone 150 Mg/3 Ml Sdv IVPUSH 12/08/20 15:31 150 mg ONETIME ONE Administration Metoprolol Tartrate 5 mg 12/08/20 14:23 12/08/20 14:28 Metoprolol Tartrate 5 Mg/5 Ml Sdv IVPUSH 12/08/20 14:24 5 mg ONETIME ONE Administration Verapamil HCl 5 mg 12/08/20 14:00 12/08/20 14:05 Verapamil 5 Mg/2 Ml Sdv IVPUSH 12/08/20 14:01 5 mg ONETIME ONE Administration - Re-Assessments/Exams Free Text/Narrative Re-Assessment/Exam: 12/08/20 14:33 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 She was given 5 mg of IV verapamil, CBC CMP and troponin were obtained. Within 1 minute of the verapamil, she went back into a mixed sinus rhythm with some atrial fibrillation. Over the next 10 minutes however she converted back and forth into SVT. 5 mg of IV metoprolol was given. Dr. Brad Edwards of the hospitalist service was consulted she will need admission for SVT control and comfort cares. 12/08/20 15:59 Troponin was within normal range, electrolytes were generally normal. White count was normal. She maintained a mostly sinus rhythm after the metoprolol but just prior to being admitted she again redeveloped SVT. I believe Dr. Edwards will attempt to use amiodarone as she is admitted to the ICU. Departure - Departure Time of Disposition: 15:56 Disposition: Admitted As Inpatient 68 Clinical Impression: Paroxysmal SVT (supraventricular tachycardia) Chest pain Qualifiers: Chest pain type: precordial pain Qualified Code(s): R07.2 - Precordial pain Sepsis Event Note (ED) - Evaluation Sepsis Screening Result: No Definite Risk - Focused Exam Vital Signs: Vital Signs Temp Pulse Pulse Resp BP BP Pulse Ox 12/08/20 15:00 30 H 116/77 91 L 12/08/20 14:30 22 H 103/74 92 L 12/08/20 14:28 165 H 103/74 12/08/20 14:00 113/74 12/08/20 13:54 97.9 F 67 22 H 135/82 92 L - My Orders Last 24 Hours: My Active Orders 12/08/20 14:15 Sodium Chloride 0.9% [Normal Saline] 500 ml IV ASDIRECTED - Assessment/Plan Last 24 Hours: My Active Orders 12/08/20 14:15 Sodium Chloride 0.9% [Normal Saline] 500 ml IV ASDIRECTED
[2020-12-08] MEDS ORDERED: Sodium Chloride 0.9% 500 ML IV SCH (14:15)
[2020-12-08] MEDS ORDERED: Metoprolol Tartrate 5 MG/5 ML SDV IVPUSH ONE (14:23)
[2020-12-08] MEDS ORDERED: Amiodarone 150 MG/3 ML SDV IVPUSH ONE (15:30)
--- NOTE | 2020-12-08 15:30 | PCM.HP.2 ---
H&P History of Present Illness - General Date of Service: 12/08/20 Admit Problem/Dx: Admission Diagnosis/Problem Admission Diagnosis/Problem Supraventricular tachycardia Source of Information: Patient, Family, Provider History Limitations: Reports: No Limitations - History of Present Illness Initial Comments - Free Text/Narative: CC: I couldn't stand up HPI: Sofia presents to the emergency room today with weakness and some chest pressure. She has some memory issues and history is somewhat difficult to gather. Her Al provides some additional history. He reports that over the past 2 or 3 days she has been more weak than usual. Today she was so weak that she could not stand up. He reported to her that she was having some chest pressure and pointed to the middle of her abdomen. She does not recall having this. She does not currently have any palpitations and has not had any over the past couple of days. She reports that things have been pretty much normal other than the weakness. No recent fevers cough or shortness of breath. She has not noticed a change in bowel or bladder habits. She called 911 because of the weakness and concern that she may have a fast heart rhythm. In the ambulance she was noted to have SVT with a heart rate in the 180s. She received adenosine on 2 separate occasions. Both times she did return to a sinus rhythm for short while before returning to SVT with a fast rate. In the emergency room she received 5 mg of IV verapamil which helped temporarily. She then received 5 mg of IV metoprolol which helped temporarily. Unfortunately she keeps returning to SVT with heart rates in the 160-180 range. She is going to be admitted for further management. Middle Chest Pain Score (Numeric/FACES): 5 - Related Data Allergies/Adverse Reactions: Allergies Allergy/AdvReac Type Severity Reaction Status Date / Time amlodipine Allergy Cannot Verified 12/08/20 14:17 Remember carbamazepine [From Tegretol] Allergy Dizziness Verified 12/08/20 14:17 Penicillins Allergy Hives Verified 12/08/20 14:17 Home Medications: Home Meds Pregabalin [Lyrica] 300 mg PO BEDTIME 09/14/15 [History] oxyCODONE 10 mg PO Q4H PRN 09/14/15 [History] Lidocaine 2% [Xylocaine 2% Viscous] 15 ml PO ASDIRECTED 10/16/16 [History] Past Medical History HEENT History: Reports: Hard of Hearing, Other (See Below) Other HEENT History: mouth pain, left face pain. 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: Musculoskeletal History: Reports: Osteoporosis Neurological History: Reports: Migraines Other Neuro History: n Endocrine/Metabolic History: Reports: Hypothyroidism, Vitamin D Deficiency Hematologic History: Reports: Anemia Other Hematologic History: Autoimmune hemolytic anemia - Infectious Disease History Infectious Disease History: Reports: Chicken Pox, Measles, Mumps - Past Surgical History GI Surgical History: Reports: Cholecystectomy Other Musculoskeletal Surgeries/Procedures:: rigth foot fracture Social & Family History - Family History Family Medical History: No Pertinent Family History - Tobacco Use Tobacco Use Status *Q: Never Tobacco User - Caffeine Use Caffeine Use: Reports: None - Alcohol Use Alcohol Use History: No - Recreational Drug Use Recreational Drug Use: No - Living Situation & Occupation Living situation: Reports: 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 Pertinent positives and negatives are noted in the history of present illness. All other systems were reviewed and were negative except as noted. Exam - Exam Exam: See Below - Vital Signs Vital Signs: Last Vital Signs Temp 36.6 C 12/08/20 13:54 Pulse 165 H 12/08/20 14:28 Resp 22 H 12/08/20 13:54 BP 103/74 12/08/20 14:28 Pulse Ox 92 L 12/08/20 13:54 - Exam Quality Assessment: No: Supplemental Oxygen General: Alert, Cooperative. No: Mild Distress HEENT: Conjunctiva Clear. No: Mucosa Moist & [place] (dry), Scleral Icterus Neck: Supple, Trachea Midline. No: JVD Lungs: Clear to Auscultation, Normal Respiratory Effort Cardiovascular: Regular Rate, Irregular Rhythm. No: Systolic Murmur GI/Abdominal Exam: Normal Bowel Sounds, Soft, Non-Tender, No Distention Extremities: Pedal Edema (mild lower leg edema bilaterally ), Other (both lower legs cool to touch ) Skin: Dry, Intact. No: Rash Neuro Extensive - Mental Status: Alert, Nl Response to Commands Neuro Extensive - Motor, Sensory, Reflexes: No: Dysarthria, Abnormal Motor Psychiatric: Alert, Normal Affect - Patient Data Lab Results Last 24 hrs: Laboratory Results - last 24 hr 12/08/20 12/08/20 Range/Units 14:29 14:29 WBC 9.7 (4.5-11.0) K/uL RBC 3.67 (3.30-5.50) M/uL Hgb 11.8 L (12.0-15.0) g/dL Hct 35.3 L (36.0-48.0) % MCV 96 (80-98) fL MCH 32 H (27-31) pg MCHC 33 (32-36) % Plt Count 172 (150-400) K/uL Neut % (Auto) 76 H (36-66) % Lymph % (Auto) 11 L (24-44) % [place] % (Auto) 13 H (2-6) % Eos % (Auto) 0 L (2-4) % Baso % (Auto) 0 (0-1) % Sodium 139 L (140-148) mmol/L Potassium 4.2 (3.6-5.2) mmol/L Chloride 105 (100-108) mmol/L Carbon Dioxide 25 (21-32) mmol/L Anion Gap 13.2 (5.0-14.0) mmol/L BUN 13 (7-18) mg/dL Creatinine 1.0 D (0.6-1.0) mg/dL Est Cr Clr Drug Dosing TNP Estimated GFR (MDRD) 53 L (>60) Glucose 123 H (74-106) mg/dL Calcium 8.1 L (8.5-10.1) mg/dL Total Bilirubin 0.6 (0.2-1.0) mg/dL AST 25 (15-37) U/L ALT 21 (12-78) U/L Alkaline Phosphatase 54 (46-116) U/L Troponin I 0.047 (0.000-0.056) ng/mL Total Protein 6.1 L (6.4-8.2) g/dL Albumin 2.7 L (3.4-5.0) g/dL Globulin 3.4 (2.3-3.5) g/dL Albumin/Globulin Ratio 0.8 L (1.2-2.2) Result Diagrams: 12/08/20 14:29 12/08/20 14:29 Sepsis Event Note - Evaluation Sepsis Screening Result: No Definite Risk - Focused Exam Vital Signs: Vital Signs Temp Pulse Pulse Resp BP BP Pulse Ox 12/08/20 14:28 165 H 103/74 12/08/20 14:00 113/74 12/08/20 13:54 36.6 C 67 22 H 135/82 92 L *Q Meaningful Use (ADM) - VTE Risk Assess *Q Each Risk Factor Represents 1 Point: Swollen Legs, Current Total Score 1 Point Risk Factors: 1 Each Risk Factor Represents 2 Points: None Total Score 2 Point Risk Factors: 0 Each Risk Factor Represents 3 Points: History of DVT/PE, Positive lupus anticoagulant Total Score 3 Point Risk Factors: 6 Each Risk Factor Represents 5 Points: None Total Score 5 Point Risk Factors: 0 Venous Thromboembolism Risk Factor Score *Q: 7 - Problem List (1) Paroxysmal SVT (supraventricular tachycardia) SNOMED Code(s): 11021753 ICD Code: I47.1 - SUPRAVENTRICULAR TACHYCARDIA Status: Acute Current Visit: Yes Problem List Initiated/Reviewed/Updated: Yes Orders Last 24hrs: Active Orders 24 hr Category Date Time Status Patient Status Manage Transfer [TRANSFER] Routine ADT 12/08/20 15:22 Ordered Sodium Chloride 0.9% [Normal Saline] 500 ml Med 12/08/20 14:15 Active IV ASDIRECTED Resuscitation Status Routine Resus Stat 12/08/20 15:23 Ordered Medication Orders Sodium Chloride (Normal Saline) 500 mls @ 1,000 mls/hr IV ASDIRECTED ISHMAEL Last Admin: 12/08/20 14:18 Dose: 1,000 mls/hr Documented by: RONN Assessment/Plan Comment:: ASSESSMENT AND PLAN - Paroxysmal SVT-history of similar though it usually resolves fairly quickly and often times with just vagal maneuvers. Chest pain she had earlier probably was related to the rapid rhythm. She has responded but only temporarily to adenosine, verapamil and metoprolol. Because of the fairly rapid recurrence after these we are going to transition to amiodarone. The patient wants a limited care plan and is not interested in any sort of invasive intervention. She is agreeable to trials of medication and is willing to be hospitalized but does not want to be transferred. -Amiodarone bolus followed by infusion -Magnesium level -Cardiac monitoring Maintenance issues - - DVT prophylaxis -mechanical - GI prophylaxis -not indicated - Nutrition -regular - Martinez catheter -not indicated CODE STATUS -DNR/DNI Admission justification -this patient will be admitted for inpatient services and is medically appropriate meeting medical necessity for inpatient admission as outlined in my documentation. I reasonably expect the patient will require inpatient services that span a period time over 2 midnights. I reasonably expect this patient to be discharged or transferred within [address] [facility]. Patient will require a 24-hour amiodarone infusion as well as a transition to oral medications after that time. Disposition -I would anticipate discharge home after the hospital stay Primary care physician - Niles Edwards M.D. - Mortality Measure Prognosis:: Good
[2020-12-08] MEDS ORDERED: Acetaminophen 325 MG Tab PO PRN (16:02)
[2020-12-08] MEDS ORDERED: Ondansetron 4 MG/2 ML SDV IV PRN (16:02)
[2020-12-08] MEDS ORDERED: Ondansetron 4 MG Tab.DIS PO PRN (16:02)
[2020-12-08] MEDS ORDERED: Magnesium Hydroxide 400 MG/5 ML Susp 30 ML Cup PO PRN (16:02)
[2020-12-08] MEDS: oxyCODONE 5 MG Tab PO PRN (16:10)
[2020-12-08] MEDS ORDERED: Lidocaine 2% Viscous Solution 15 ML Cup PO SCH (16:15)
[2020-12-08] MEDS ORDERED: Magnesium Sulfate/Water 2 GM/50 ML BAG IV ONE (17:30)
[2020-12-08] MEDS: Melatonin 3 MG Tab PO SCH (20:25)
[2020-12-08] MEDS: Pregabalin 100 MG Cap PO SCH (20:25)
[2020-12-08] MEDS: VISCOUS PO PRN (20:31)
[2020-12-08] MEDS: LIDOCAINE 2% PO PRN (20:31)
[2020-12-09] MEDS: VISCOUS PO PRN (05:41)
[2020-12-09] MEDS: LIDOCAINE 2% PO PRN (05:41)
[2020-12-09] MEDS: oxyCODONE 5 MG Tab PO PRN (05:43)
[2020-12-09] MEDS ORDERED: Morphine 2 MG/ML SYRINGE IVPUSH ONE (06:13)
[2020-12-09] MEDS ORDERED: Morphine 2 MG/ML SYRINGE IVPUSH PRN (09:14)
[2020-12-09] MEDS ORDERED: Sodium Chloride 0.9% 1,000 ML IV SCH (09:15)
--- NOTE | 2020-12-09 11:06 | PCM.PN ---
- General Info Date of Service: 12/09/20 Subjective Update: Overnight the amiodarone infusion had to be decreased from 1 down to 0.5 because of bradycardia. Heart rate stabilized in the upper 50s after that time. She sheridan d episodes of chest pain overnight as well. An EKG did not show any acute ischemic changes. Troponin level was at the upper limits of normal. Blood pressure has been stable. She has not had any fevers. She does continue to report mid chest pain today. This pain is worse with movements and with deep breathing. She does not feel particularly short of breath. No nausea. She tells me that she thinks she is dying slowly. - Review of Systems General: Denies: Fever Cardiovascular: Reports: Chest Pain - Patient Data Vitals - Most Recent: Last Vital Signs Temp 36.6 C 12/09/20 03:00 Pulse 57 L 12/09/20 10:00 Resp 21 H 12/09/20 10:00 BP 109/62 12/09/20 10:00 Pulse Ox 93 L 12/09/20 10:00 Weight - Most Recent: 63.503 kg I&O - Last 24 Hours: Intake & Output 12/08/20 12/09/20 12/09/20 21:59 06:59 14:59 Intake Total Output Total Balance Lab Results Last 24 Hours: Laboratory Results - last 24 hr 12/08/20 12/08/20 12/08/20 Range/Units 14:21 14:29 14:29 WBC 9.7 (4.5-11.0) K/uL RBC 3.67 (3.30-5.50) M/uL Hgb 11.8 L (12.0-15.0) g/dL Hct 35.3 L (36.0-48.0) % MCV 96 (80-98) fL MCH 32 H (27-31) pg MCHC 33 (32-36) % Plt Count 172 (150-400) K/uL Neut % (Auto) 76 H (36-66) % Lymph % (Auto) 11 L (24-44) % [place] % (Auto) 13 H (2-6) % Eos % (Auto) 0 L (2-4) % Baso % (Auto) 0 (0-1) % Sodium 139 L (140-148) mmol/L Potassium 4.2 (3.6-5.2) mmol/L Chloride 105 (100-108) mmol/L Carbon Dioxide 25 (21-32) mmol/L Anion Gap 13.2 (5.0-14.0) mmol/L BUN 13 (7-18) mg/dL Creatinine 1.0 D (0.6-1.0) mg/dL Est Cr Clr Drug Dosing TNP Estimated GFR (MDRD) 53 L (>60) Glucose 123 H (74-106) mg/dL Calcium 8.1 L (8.5-10.1) mg/dL Magnesium 1.8 (1.8-2.4) mg/dL Total Bilirubin 0.6 (0.2-1.0) mg/dL AST 25 (15-37) U/L ALT 21 (12-78) U/L Alkaline Phosphatase 54 (46-116) U/L Troponin I 0.047 (0.000-0.056) ng/mL Total Protein 6.1 L (6.4-8.2) g/dL Albumin 2.7 L (3.4-5.0) g/dL Globulin 3.4 (2.3-3.5) g/dL Albumin/Globulin Ratio 0.8 L (1.2-2.2) 12/09/20 Range/Units 06:28 WBC (4.5-11.0) K/uL RBC (3.30-5.50) M/uL Hgb (12.0-15.0) g/dL Hct (36.0-48.0) % MCV (80-98) fL MCH (27-31) pg MCHC (32-36) % Plt Count (150-400) K/uL Neut % (Auto) (36-66) % Lymph % (Auto) (24-44) % [place] % (Auto) (2-6) % Eos % (Auto) (2-4) % Baso % (Auto) (0-1) % Sodium (140-148) mmol/L Potassium (3.6-5.2) mmol/L Chloride (100-108) mmol/L Carbon Dioxide (21-32) mmol/L Anion Gap (5.0-14.0) mmol/L BUN (7-18) mg/dL Creatinine (0.6-1.0) mg/dL Est Cr Clr Drug Dosing Estimated GFR (MDRD) (>60) Glucose (74-106) mg/dL Calcium (8.5-10.1) mg/dL Magnesium (1.8-2.4) mg/dL Total Bilirubin (0.2-1.0) mg/dL AST (15-37) U/L ALT (12-78) U/L Alkaline Phosphatase (46-116) U/L Troponin I 0.057 H (0.000-0.056) ng/mL Total Protein (6.4-8.2) g/dL Albumin (3.4-5.0) g/dL Globulin (2.3-3.5) g/dL Albumin/Globulin Ratio (1.2-2.2) Med Orders - Current: Current Medications Acetaminophen (Acetaminophen 325 Mg Tab) 650 mg PO Q4H PRN PRN Reason: Pain (Mild 1-3)/fever Amiodarone HCl 450 mg/ (Dextrose/Water) 250 mls @ 33.333 mls/hr IV ASDIRECTED [facility]; Protocol Last Admin: 12/09/20 03:34 Dose: 0.5 mg/min, 16.667 mls/hr Documented by: Sodium Chloride (Normal Saline) 1,000 mls @ 200 mls/hr IV ASDIRECTED [facility] Stop: 12/09/20 14:16 Last Admin: 12/09/20 10:14 Dose: 200 mls/hr Documented by: Lidocaine HCl (Lidocaine 2% Viscous SolutionPom) 5 ml PO TID PRN PRN Reason: SWISH AND SWALLOW - PAIN Last Admin: 12/09/20 05:41 Dose: 5 ml Documented by: Magnesium Hydroxide (Magnesium Hydroxide 400 Mg/5 Ml Susp 30 Ml Cup) 30 ml PO Q12H PRN PRN Reason: Constipation Melatonin (Melatonin 3 Mg Tab) 9 mg PO BEDTIME [facility] Last Admin: 12/08/20 20:25 Dose: 9 mg Documented by: Methylprednisolone Sodium Succinate (Methylprednisolone Sodium Succinate 125 Mg/2 Ml Sdv) 125 mg IVPUSH ONETIME ONE Stop: 12/09/20 11:05 Morphine Sulfate (Morphine 2 Mg/Ml Syringe) 1 mg IVPUSH Q2H PRN PRN Reason: Chest Pain Ondansetron HCl (Ondansetron 4 Mg/2 Ml Sdv) 4 mg IV Q6H PRN PRN Reason: Nausea/Vomiting Ondansetron HCl (Ondansetron 4 Mg Tab.Dis) 4 mg PO Q6H PRN PRN Reason: Nausea able to take PO Oxycodone HCl (Oxycodone 5 Mg Tab) 10 mg PO Q4H PRN PRN Reason: PAIN Last Admin: 12/09/20 05:43 Dose: 10 mg Documented by: Pregabalin (Pregabalin 100 Mg Cap) 300 mg PO BEDTIME IS[facility]MAEL Last Admin: 12/08/20 20:25 Dose: 300 mg Documented by: Senna/Docusate Sodium (Docusate Sodium/Sennosides 50-8.6 Mg Tab) 1 tab PO BID PRN PRN Reason: Constipation Discontinued Medications Amiodarone HCl (Amiodarone 150 Mg/3 Ml Sdv) 150 mg IVPUSH ONETIME ONE Stop: 12/08/20 15:31 Last Admin: 12/08/20 15:46 Dose: 150 mg Documented by: Sodium Chloride (Normal Saline) 500 mls @ 1,000 mls/hr IV ASDIRECTED [facility] Last Admin: 12/08/20 14:18 Dose: 1,000 mls/hr Documented by: Magnesium Sulfate (Magnesium Sulfate In Water 2 Gm/50 Ml) 2 gm in 50 mls @ 12.5 mls/hr IV ONETIME ONE Stop: 12/08/20 21:29 Last Admin: 12/08/20 18:45 Dose: 12.5 mls/hr Documented by: Lidocaine HCl (Lidocaine 2% Viscous Solution 15 Ml Cup) 15 ml PO ASDIRECTED [facility] Metoprolol Tartrate (Metoprolol Tartrate 5 Mg/5 Ml Sdv) 5 mg IVPUSH ONETIME ONE Stop: 12/08/20 14:24 Last Admin: 12/08/20 14:28 Dose: 5 mg Documented by: Morphine Sulfate (Morphine 2 Mg/Ml Syringe) 2 mg IVPUSH ONETIME ONE Stop: 12/09/20 06:14 Last Admin: 12/09/20 06:30 Dose: 2 mg Documented by: Verapamil HCl (Verapamil 5 Mg/2 Ml Sdv) 5 mg IVPUSH ONETIME ONE Stop: 12/08/20 14:01 Last Admin: 12/08/20 14:05 Dose: 5 mg Documented by: - Exam Quality Assessment: Supplemental Oxygen General: Alert, Cooperative, No Acute Distress Lungs: Normal Respiratory Effort. No: Wheezing Cardiovascular: Regular Rate, Regular Rhythm GI/Abdominal Exam: Soft, Non-Tender, No Distention Extremities: No Pedal Edema. No: Increased Warmth Skin: Warm, Dry Psy/Mental Status: Alert, Normal Affect - Patient Data Lab Results Last 24 hrs: Laboratory Results - last 24 hr 12/08/20 12/08/20 12/08/20 Range/Units 14:21 14:29 14:29 WBC 9.7 (4.5-11.0) K/uL RBC 3.67 (3.30-5.50) M/uL Hgb 11.8 L (12.0-15.0) g/dL Hct 35.3 L (36.0-48.0) % MCV 96 (80-98) fL MCH 32 H (27-31) pg MCHC 33 (32-36) % Plt Count 172 (150-400) K/uL Neut % (Auto) 76 H (36-66) % Lymph % (Auto) 11 L (24-44) % [place] % (Auto) 13 H (2-6) % Eos % (Auto) 0 L (2-4) % Baso % (Auto) 0 (0-1) % Sodium 139 L (140-148) mmol/L Potassium 4.2 (3.6-5.2) mmol/L Chloride 105 (100-108) mmol/L Carbon Dioxide 25 (21-32) mmol/L Anion Gap 13.2 (5.0-14.0) mmol/L BUN 13 (7-18) mg/dL Creatinine 1.0 D (0.6-1.0) mg/dL Est Cr Clr Drug Dosing TNP Estimated GFR (MDRD) 53 L (>60) Glucose 123 H (74-106) mg/dL Calcium 8.1 L (8.5-10.1) mg/dL Magnesium 1.8 (1.8-2.4) mg/dL Total Bilirubin 0.6 (0.2-1.0) mg/dL AST 25 (15-37) U/L ALT 21 (12-78) U/L Alkaline Phosphatase 54 (46-116) U/L Troponin I 0.047 (0.000-0.056) ng/mL Total Protein 6.1 L (6.4-8.2) g/dL Albumin 2.7 L (3.4-5.0) g/dL Globulin 3.4 (2.3-3.5) g/dL Albumin/Globulin Ratio 0.8 L (1.2-2.2) 12/09/20 Range/Units 06:28 WBC (4.5-11.0) K/uL RBC (3.30-5.50) M/uL Hgb (12.0-15.0) g/dL Hct (36.0-48.0) % MCV (80-98) fL MCH (27-31) pg MCHC (32-36) % Plt Count (150-400) K/uL Neut % (Auto) (36-66) % Lymph % (Auto) (24-44) % [place] % (Auto) (2-6) % Eos % (Auto) (2-4) % Baso % (Auto) (0-1) % Sodium (140-148) mmol/L Potassium (3.6-5.2) mmol/L Chloride (100-108) mmol/L Carbon Dioxide (21-32) mmol/L Anion Gap (5.0-14.0) mmol/L BUN (7-18) mg/dL Creatinine (0.6-1.0) mg/dL Est Cr Clr Drug Dosing Estimated GFR (MDRD) (>60) Glucose (74-106) mg/dL Calcium (8.5-10.1) mg/dL Magnesium (1.8-2.4) mg/dL Total Bilirubin (0.2-1.0) mg/dL AST (15-37) U/L ALT (12-78) U/L Alkaline Phosphatase (46-116) U/L Troponin I 0.057 H (0.000-0.056) ng/mL Total Protein (6.4-8.2) g/dL Albumin (3.4-5.0) g/dL Globulin (2.3-3.5) g/dL Albumin/Globulin Ratio (1.2-2.2) Result Diagrams: 12/08/20 14:29 12/08/20 14:29 Sepsis Event Note - Evaluation Sepsis Screening Result: No Definite Risk - Focused Exam Vital Signs: Vital Signs Temp Pulse Resp BP Pulse Ox 12/09/20 10:00 57 L 21 H 109/62 93 L 12/09/20 08:00 57 L 12/09/20 06:00 18 127/95 H 97 12/09/20 04:00 17 113/67 98 12/09/20 03:00 36.6 C 13 128/75 99 12/09/20 00:00 18 106/67 95 - Problem List & Annotations (1) Paroxysmal SVT (supraventricular tachycardia) SNOMED Code(s): 67860224 Code(s): I47.1 - SUPRAVENTRICULAR TACHYCARDIA Status: Acute Current Visit: Yes - Problem List Review Problem List Initiated/Reviewed/Updated: Yes - My Orders Last 24 Hours: My Active Orders 12/08/20 15:23 Resuscitation Status Routine 12/08/20 15:30 Amiodarone [Cordarone] 450 mg Dextrose 5% in Water 241 ml IV ASDIRECTED 12/08/20 16:02 Acetaminophen [TylenoL] 650 mg PO Q4H PRN Docusate Sodium/Sennosides [Senna Plus] 1 tab PO BID PRN Magnesium Hydroxide [Milk of Magnesia] 30 ml PO Q12H PRN Ondansetron [Zofran ODT] 4 mg PO Q6H PRN Ondansetron [Zofran] 4 mg IV Q6H PRN 12/08/20 16:02 Patient Status [ADT] Routine Antiembolic Devices [RC] .Routine Cardiac Monitoring [RC] Q6H Intake and Output [RC] QSHIFT Notify Provider Vital Signs [RC] ASDIRECTED Oxygen Therapy [RC] PRN Up With Assistance [RC] ASDIRECTED VTE/DVT Education [RC] Per Unit Routine Vital Signs [RC] Q2HR Sequential Compression Device [OM.PC] Routine 12/08/20 16:06 oxyCODONE 10 mg PO Q4H PRN 12/08/20 16:15 Lidocaine 2% [Xylocaine 2% Viscous] 5 ml PO TID PRN 12/08/20 Dinner Regular Diet [DIET] 12/08/20 21:00 Melatonin 9 mg PO BEDTIME Pregabalin [Lyrica] 300 mg PO BEDTIME 12/09/20 06:20 EKG Documentation Completion [RC] ASDIRECTED EKG 12 Lead [EK] Routine 12/09/20 09:14 Morphine 1 mg IVPUSH Q2H PRN 12/09/20 09:15 Sodium Chloride 0.9% [Normal Saline] 1,000 ml IV ASDIRECTED 12/09/20 11:04 methylPREDNISolone Sod Succ [Solu-MEDROL] 125 mg IVPUSH ONETIME ONE - Plan Plan:: ASSESSMENT AND PLAN - Paroxysmal SVT-she has been in sinus rhythm since yesterday evening. We did have to slow the infusion because of bradycardia. Vital signs are stable. -Complete amiodarone infusion and then transition to oral amiodarone -Cardiac monitoring Atypical chest pain-patient describing more of a pleuritic or costochondritis type pain. EKG nonischemic. Troponin level at the upper limits of normal. Patient and want a very limited care plan and do not want aggressive interventions performed. 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 Maintenance issues - - DVT prophylaxis -mechanical - GI prophylaxis -not indicated - Nutrition -regular Disposition -I would anticipate discharge home after the hospital stay. Planning physical therapy in the morning. Primary care physician - Niles Edwards M.D.
[2020-12-09] MEDS ORDERED: methylPREDNISolone Sodium Succinate 125 MG/2 ML SDV IVPUSH ONE (12:00)
[2020-12-09] MEDS: Amiodarone 200 MG Tab PO SCH (20:55)
[2020-12-09] MEDS: Pregabalin 100 MG Cap PO SCH (20:55)
[2020-12-09] MEDS: Melatonin 3 MG Tab PO SCH (20:56)
[2020-12-10] MEDS: Amiodarone 200 MG Tab PO SCH ×2 (08:54→20:28)
--- NOTE | 2020-12-10 13:42 | PCM.PN ---
- General Info Date of Service: 12/10/20 Subjective Update: Ms. Valdovinos has remained stable over the last 24 hours, there have been no further episodes of SVT. She is fairly weak and requires assistance with transfers as well as ambulation. She was seen this morning by physical therapy and has been ambulating in her room with assistance of nursing staff. Functional Status: Reports: Tolerating Diet, Ambulating, Urinating - Review of Systems General: Reports: Weakness, Fatigue. Denies: Fever, Chills Pulmonary: Reports: No Symptoms Cardiovascular: Reports: No Symptoms Gastrointestinal: Reports: No Symptoms Genitourinary: Reports: No Symptoms - Patient Data Vitals - Most Recent: Last Vital Signs Temp 96.8 F L 12/10/20 12:00 Pulse 57 L 12/10/20 12:00 Resp 16 12/10/20 12:00 BP 131/66 12/10/20 12:00 Pulse Ox 95 12/10/20 12:00 Weight - Most Recent: 140 lb 0.002 oz I&O - Last 24 Hours: Intake & Output 12/09/20 12/10/20 12/10/20 22:59 06:59 14:59 Intake Total 2021 450 Output Total 200 Balance 1821 450 Med Orders - Current: Current Medications Acetaminophen (Acetaminophen 325 Mg Tab) 650 mg PO Q4H PRN PRN Reason: Pain (Mild 1-3)/fever Amiodarone HCl (Amiodarone 200 Mg Tab) 200 mg PO BID [facility] Last Admin: 12/10/20 08:54 Dose: 200 mg Documented by: Amiodarone HCl 450 mg/ (Dextrose/Water) 250 mls @ 33.333 mls/hr IV ASDIRECTED [facility]; Protocol Last Admin: 12/09/20 03:34 Dose: 0.5 mg/min, 16.667 mls/hr Documented by: Lidocaine HCl (Lidocaine 2% Viscous SolutionPom) 5 ml PO TID PRN PRN Reason: SWISH AND SWALLOW - PAIN Last Admin: 12/09/20 05:41 Dose: 5 ml Documented by: Magnesium Hydroxide (Magnesium Hydroxide 400 Mg/5 Ml Susp 30 Ml Cup) 30 ml PO Q12H PRN PRN Reason: Constipation Melatonin (Melatonin 3 Mg Tab) 9 mg PO BEDTIME [facility] Last Admin: 12/09/20 20:56 Dose: 9 mg Documented by: Morphine Sulfate (Morphine 2 Mg/Ml Syringe) 1 mg IVPUSH Q2H PRN PRN Reason: Chest Pain Ondansetron HCl (Ondansetron 4 Mg/2 Ml Sdv) 4 mg IV Q6H PRN PRN Reason: Nausea/Vomiting Ondansetron HCl (Ondansetron 4 Mg Tab.Dis) 4 mg PO Q6H PRN PRN Reason: Nausea able to take PO Oxycodone HCl (Oxycodone 5 Mg Tab) 10 mg PO Q4H PRN PRN Reason: PAIN Last Admin: 12/09/20 05:43 Dose: 10 mg Documented by: Pregabalin (Pregabalin 100 Mg Cap) 300 mg PO BEDTIME [facility] Last Admin: 12/09/20 20:55 Dose: 300 mg Documented by: Senna/Docusate Sodium (Docusate Sodium/Sennosides 50-8.6 Mg Tab) 1 tab PO BID PRN PRN Reason: Constipation Discontinued Medications Amiodarone HCl (Amiodarone 150 Mg/3 Ml Sdv) 150 mg IVPUSH ONETIME ONE Stop: 12/08/20 15:31 Last Admin: 12/08/20 15:46 Dose: 150 mg Documented by: Sodium Chloride (Normal Saline) 500 mls @ 1,000 mls/hr IV ASDIRECTED [facility] Last Admin: 12/08/20 14:18 Dose: 1,000 mls/hr Documented by: Magnesium Sulfate (Magnesium Sulfate In Water 2 Gm/50 Ml) 2 gm in 50 mls @ 12.5 mls/hr IV ONETIME ONE Stop: 12/08/20 21:29 Last Admin: 12/08/20 18:45 Dose: 12.5 mls/hr Documented by: Sodium Chloride (Normal Saline) 1,000 mls @ 200 mls/hr IV ASDIRECTED [facility] Stop: 12/09/20 14:16 Last Admin: 12/09/20 10:14 Dose: 200 mls/hr Documented by: Lidocaine HCl (Lidocaine 2% Viscous Solution 15 Ml Cup) 15 ml PO ASDIRECTED [facility] Methylprednisolone Sodium Succinate (Methylprednisolone Sodium Succinate 125 Mg/2 Ml Sdv) 125 mg IVPUSH ONETIME ONE Stop: 12/09/20 12:01 Last Admin: 12/09/20 11:33 Dose: 125 mg Documented by: Metoprolol Tartrate (Metoprolol Tartrate 5 Mg/5 Ml Sdv) 5 mg IVPUSH ONETIME ONE Stop: 12/08/20 14:24 Last Admin: 12/08/20 14:28 Dose: 5 mg Documented by: Morphine Sulfate (Morphine 2 Mg/Ml Syringe) 2 mg IVPUSH ONETIME ONE Stop: 12/09/20 06:14 Last Admin: 12/09/20 06:30 Dose: 2 mg Documented by: Verapamil HCl (Verapamil 5 Mg/2 Ml Sdv) 5 mg IVPUSH ONETIME ONE Stop: 12/08/20 14:01 Last Admin: 12/08/20 14:05 Dose: 5 mg Documented by: - Exam Quality Assessment: DVT Prophylaxis General: Alert, Cooperative, Mild Distress. No: Oriented Lungs: Clear to Auscultation, Normal Respiratory Effort Cardiovascular: Regular Rate, Regular Rhythm, No Murmurs GI/Abdominal Exam: Soft, Non-Tender, No Organomegaly, No Distention Extremities: Non-Tender, No Pedal Edema - Patient Data Result Diagrams: 12/08/20 14:29 12/08/20 14:29 Sepsis Event Note - Evaluation Sepsis Screening Result: No Definite Risk - Focused Exam Vital Signs: Vital Signs Temp Pulse Resp BP Pulse Ox 12/10/20 12:00 96.8 F L 57 L 16 131/66 95 12/10/20 10:00 144/81 H 12/10/20 09:55 95 12/10/20 08:00 97.5 F 82 21 H 141/82 H 97 12/10/20 06:00 15 102/59 L 94 L 12/10/20 04:00 15 97/55 L 94 L 12/10/20 02:00 97.7 F 16 109/61 94 L - Problem List Review Problem List Initiated/Reviewed/Updated: Yes - My Orders Last 24 Hours: My Active Orders 12/10/20 13:03 Patient Status [ADT] Routine - Plan Plan:: ASSESSMENT AND PLAN - Paroxysmal SVT-she has been in sinus rhythm for the last 36 hours -Continue oral amiodarone -Cardiac monitoring Atypical chest pain-patient describing more of a pleuritic or costochondritis type pain. EKG nonischemic. Troponin level at the upper limits of normal. Patient and want a very limited care plan and do not want aggressive interventions performed. 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 Maintenance issues - - DVT prophylaxis -mechanical - GI prophylaxis -not indicated - Nutrition -regular Disposition -I would anticipate discharge home after the hospital stay. Planning physical therapy in the morning. Primary care physician - Niles Leroy NP
[2020-12-10] MEDS: Melatonin 3 MG Tab PO SCH (20:28)
[2020-12-10] MEDS: LIDOCAINE 2% PO PRN (20:31)
[2020-12-10] MEDS: VISCOUS PO PRN (20:31)
[2020-12-10] MEDS ORDERED: Pregabalin 50 MG Cap PO SCH (21:00)
[2020-12-11] MEDS: oxyCODONE 5 MG Tab PO PRN (03:07)
[2020-12-11] MEDS: Amiodarone 200 MG Tab PO SCH (10:12)
[2020-12-11 11:01] VITALS: BP 156/67; PULSE 66
--- NOTE | 2020-12-11 13:10 | PCM.DCSUM1 ---
Discharge Summary - Hospital Course Brief History: Ms. Valdovinos is an 85-year-old woman who was admitted through the emergency department with weakness and lightheadedness secondary to supraventricular tachycardia. - Discharge Data Discharge Date: 12/11/20 Discharge Disposition: Home, W Home Health Agency 06 Condition: Fair - Referral to Home Health Date of Face to Face Encounter: 12/11/20 Reason for Homebound Status: Generalized weakness, paroxysmal supraventricular tachycardia Primary Care Physician: PCP None Skilled Need: Nursing care, home health aide, home physical therapy and Occupational Therapy - Discharge Diagnosis/Problem(s) (1) Gait instability SNOMED Code(s): 92259246 ICD Code: R26.81 - UNSTEADINESS ON FEET Status: Acute Current Visit: No (2) Weakness SNOMED Code(s): 07408065 ICD Code: R53.1 - WEAKNESS Status: Acute Current Visit: No (3) Paroxysmal SVT (supraventricular tachycardia) SNOMED Code(s): 94541598 ICD Code: I47.1 - SUPRAVENTRICULAR TACHYCARDIA Status: Acute Current Visit: Yes (4) Orthostatic hypotension SNOMED Code(s): 74778571 ICD Code: I95.1 - ORTHOSTATIC HYPOTENSION Status: Acute Current Visit: No - Patient Summary/Data Consults: Consultations 12/10/20 07:00 PT Evaluation and Treatment [CONS] Routine Please Evaluate and Treat. PT Reason for Consult: Strengthening This query below is only for informational purposes and is not editable. Admission Diagnosis/Problem: Supraventricular tachycardia Hospital Course: Ms. Valdovinos is an 85-year-old woman who presented to the emergency room with weakness and some chest pressure. She has some memory issues and history is somewhat difficult to gather. Her Al provides some additional history. He reports that over the past 2 or 3 days she has been more weak than usual. Today she was so weak that she could not stand up. He reported to her that she was having some chest pressure and pointed to the middle of her abdomen. She does not recall having this. She called 911 because of the weakness and concern that she may have a fast heart rhythm. In the ambulance she was noted to have SVT with a heart rate in the 180s. She received adenosine on 2 separate occasions. Both times she did return to a sinus rhythm for short while before returning to SVT with a fast rate. In the emergency room she received 5 mg of IV verapamil which helped temporarily. She then received 5 mg of IV metoprolol which helped temporarily. Unfortunately she keeps returning to SVT with heart rates in the 160-180 range. She is going to be admitted for further management. Because the atrial fibrillation was recurrent despite various medications she was treated with amiodarone bolus and then 24-hour amiodarone infusion given per protocol. With this intervention she did convert to sinus rhythm and remained in sinus rhythm throughout the duration of her hospital stay. She was monitored during hospitalization and there were no other significant dysrhythmias. She was fairly weak and for this reason was kept an extra day for some more physical therapy. By the time of discharge she was transferring and ambulating independently with standby assistance. She will remain on amiodarone 200 mg twice daily for another 10 days and then will go to 200 mg daily. Follow-up appointment will be scheduled with her primary care provider within 1 week. Activity will be as tolerated and she will resume her usual diet. - Patient Instructions Diet: Usual Diet as Tolerated Activity: As Tolerated Other/Special Instructions: Please schedule follow-up appointment with primary care provider within 1 week - Discharge Plan *PRESCRIPTION DRUG MONITORING PROGRAM REVIEWED*: Not Applicable *COPY OF PRESCRIPTION DRUG MONITORING REPORT IN PATIENT LALA: Not Applicable Prescriptions/Med Rec: Amiodarone [Cordarone] 200 mg PO BID #60 tablet Home Medications: Home Meds oxyCODONE 10 mg PO Q4H PRN 09/14/15 [History] Lidocaine 2% [Xylocaine 2% Viscous] 15 ml PO ASDIRECTED 07/13/16 [History] Pregabalin [Lyrica] 50 mg PO DAILY 12/10/20 [History] Amiodarone [Cordarone] 200 mg PO BID #60 tablet 12/11/20 [Rx] Referrals: Niles Leroy NP [Nurse Practitioner] - 12/17/20 3:20 pm (Please arrive 15 minutes early to register for your appointment.) - Discharge Summary/Plan Comment DC Time >30 min.: No - Patient Data Vitals - Most Recent: Last Vital Signs Temp 97.2 F 12/11/20 10:58 Pulse 66 12/11/20 10:58 Resp 18 12/11/20 10:58 BP 156/67 H 12/11/20 10:58 Pulse Ox 93 L 12/11/20 10:58 Weight - Most Recent: 140 lb 0.002 oz I&O - Last 24 hours: Intake & Output 12/10/20 12/11/20 12/11/20 22:59 06:59 14:59 Intake Total 300 Balance 300 Med Orders - Current: Current Medications Acetaminophen (Acetaminophen 325 Mg Tab) 650 mg PO Q4H PRN PRN Reason: Pain (Mild 1-3)/fever Amiodarone HCl (Amiodarone 200 Mg Tab) 200 mg PO BID [facility] Last Admin: 12/11/20 10:12 Dose: 200 mg Documented by: Lidocaine HCl (Lidocaine 2% Viscous SolutionPom) 5 ml PO TID PRN PRN Reason: SWISH AND SWALLOW - PAIN Last Admin: 12/10/20 20:31 Dose: 5 ml Documented by: Magnesium Hydroxide (Magnesium Hydroxide 400 Mg/5 Ml Susp 30 Ml Cup) 30 ml PO Q12H PRN PRN Reason: Constipation Melatonin (Melatonin 3 Mg Tab) 9 mg PO BEDTIME [facility] Last Admin: 12/10/20 20:28 Dose: 9 mg Documented by: Morphine Sulfate (Morphine 2 Mg/Ml Syringe) 1 mg IVPUSH Q2H PRN PRN Reason: Chest Pain Ondansetron HCl (Ondansetron 4 Mg/2 Ml Sdv) 4 mg IV Q6H PRN PRN Reason: Nausea/Vomiting Ondansetron HCl (Ondansetron 4 Mg Tab.Dis) 4 mg PO Q6H PRN PRN Reason: Nausea able to take PO Oxycodone HCl (Oxycodone 5 Mg Tab) 10 mg PO Q4H PRN PRN Reason: PAIN Last Admin: 12/11/20 03:07 Dose: 10 mg Documented by: Pregabalin (Pregabalin 50 Mg Cap) 50 mg PO BEDTIME [facility] Last Admin: 12/10/20 20:31 Dose: 50 mg Documented by: Senna/Docusate Sodium (Docusate Sodium/Sennosides 50-8.6 Mg Tab) 1 tab PO BID PRN PRN Reason: Constipation Discontinued Medications Amiodarone HCl (Amiodarone 150 Mg/3 Ml Sdv) 150 mg IVPUSH ONETIME ONE Stop: 12/08/20 15:31 Last Admin: 12/08/20 15:46 Dose: 150 mg Documented by: Sodium Chloride (Normal Saline) 500 mls @ 1,000 mls/hr IV ASDIRECTED [facility] Last Admin: 12/08/20 14:18 Dose: 1,000 mls/hr Documented by: Amiodarone HCl 450 mg/ (Dextrose/Water) 250 mls @ 33.333 mls/hr IV ASDIRECTED [facility]; Protocol Last Admin: 12/09/20 03:34 Dose: 0.5 mg/min, 16.667 mls/hr Documented by: Magnesium Sulfate (Magnesium Sulfate In Water 2 Gm/50 Ml) 2 gm in 50 mls @ 12.5 mls/hr IV ONETIME ONE Stop: 12/08/20 21:29 Last Admin: 12/08/20 18:45 Dose: 12.5 mls/hr Documented by: Sodium Chloride (Normal Saline) 1,000 mls @ 200 mls/hr IV ASDIRECTED [facility] Stop: 12/09/20 14:16 Last Admin: 12/09/20 10:14 Dose: 200 mls/hr Documented by: Lidocaine HCl (Lidocaine 2% Viscous Solution 15 Ml Cup) 15 ml PO ASDIRECTED [facility] Methylprednisolone Sodium Succinate (Methylprednisolone Sodium Succinate 125 Mg/2 Ml Sdv) 125 mg IVPUSH ONETIME ONE Stop: 12/09/20 12:01 Last Admin: 12/09/20 11:33 Dose: 125 mg Documented by: Metoprolol Tartrate (Metoprolol Tartrate 5 Mg/5 Ml Sdv) 5 mg IVPUSH ONETIME ONE Stop: 12/08/20 14:24 Last Admin: 12/08/20 14:28 Dose: 5 mg Documented by: Morphine Sulfate (Morphine 2 Mg/Ml Syringe) 2 mg IVPUSH ONETIME ONE Stop: 12/09/20 06:14 Last Admin: 12/09/20 06:30 Dose: 2 mg Documented by: Pregabalin (Pregabalin 100 Mg Cap) 300 mg PO BEDTIME [facility] Last Admin: 12/09/20 20:55 Dose: 300 mg Documented by: Verapamil HCl (Verapamil 5 Mg/2 Ml Sdv) 5 mg IVPUSH ONETIME ONE Stop: 12/08/20 14:01 Last Admin: 12/08/20 14:05 Dose: 5 mg Documented by: - Exam Quality Assessment: Reports: DVT Prophylaxis General: Reports: Alert, Oriented, Cooperative, No Acute Distress Lungs: Reports: Clear to Auscultation, Normal Respiratory Effort Cardiovascular: Reports: Regular Rate, Regular Rhythm, No Murmurs GI/Abdominal Exam: Soft, Non-Tender, No Organomegaly, No Distention Extremities: Non-Tender, No Pedal Edema
== END 2020-12-11 14:19 | disposition home health service (06) ==
LOC: JP.ED 13:54 → JP.ICU 15:22 → JP.MS 12-10 15:05
PROVIDERS: ADMIT Internal Medicine; ATTEND Hospitalist
DX: I47.1 Supraventricular tachycardia (principal); R07.89 Other chest pain; R53.1 Weakness; R26.81 Unsteadiness on feet; I95.1 Orthostatic hypotension; E78.00 Pure hypercholesterolemia, unspecified; I10 Essential (primary) hypertension; I48.91 Unspecified atrial fibrillation; E03.9 Hypothyroidism, unspecified; Z88.2 Allergy status to sulfonamides; Z88.8 Allergy status to other drugs, medicaments and biological substances; Z79.899 Other long term (current) drug therapy; Z86.2 Personal history of diseases of the blood and blood-forming organs and certain disorders involving the immune mechanism; Z98.890 Other specified postprocedural states
CPT/HCPCS: 36415; 80053; 83735; 84484; 85025; 93005; 96374; 96375; 97110; 97162; 97530; 99285; A9270; G0378; J0282; J2270; J2930; J3475; J3490; J7030; J7060

== ENCOUNTER 2021-01-08 10:49 | Emergency (ER) | payer MEDICARE, BC ==
--- NOTE | 2021-01-08 11:21 | EDM.PDOC ---
ED HPI GENERAL MEDICAL PROBLEM - General Chief Complaint: General Stated Complaint: [facility] Time Seen by Provider: 01/08/21 11:20 Source of Information: Reports: Patient, EMS, Family History Limitations: Reports: No Limitations - History of Present Illness INITIAL COMMENTS - FREE TEXT/NARRATIVE: 85-year-old female with dementia, weakness who falls fairly frequently is usually cared for by her . He is currently hospitalized but is being discharged this afternoon. This morning she stumbled slightly, lowered herself to the floor and did not have the strength to get up. Her family came and checked on her shortly afterwards and found her on the floor where she had been incontinent so called the ambulance. She has no injury, no complaints, she says she has done this before. Onset: Sudden Duration: Hour(s): (Less than 1 hour) - Related Data Allergies Allergy/AdvReac Type Severity Reaction Status Date / Time Penicillins Allergy Severe Hives Verified 01/08/21 11:19 carbamazepine [From Tegretol] Allergy Intermediate Dizziness Verified 01/08/21 11:19 amlodipine Allergy Unknown Cannot Verified 01/08/21 11:19 Remember Home Meds: Home Meds oxyCODONE 5 mg PO Q4H PRN 09/14/15 [History] Lidocaine 2% [Xylocaine 2% Viscous] 15 ml PO ASDIRECTED 07/13/16 [History] Pregabalin [Lyrica] 50 mg PO DAILY 12/10/20 [History] Amiodarone [Cordarone] 200 mg PO DAILY 01/08/21 [History] Aspirin [Adult Low Dose Aspirin EC] 81 mg PO DAILY 01/08/21 [History] Cyanocobalamin (Vitamin B-12) [Cyanocobalamin Injection] 1,000 mcg IJ ASDIRECTED 01/08/21 [History] Past Medical History HEENT History: Reports: Hard of Hearing, Other (See Below) Other HEENT History: mouth pain, left face pain. burning mouth syndrome Cardiovascular History: Reports: Afib, Blood Clots/VTE/DVT, High Cholesterol, Hypertension Other Cardiovascular History: paroxysmal supraventricular tachycardia Genitourinary History: Reports: Other (See Below) Other Genitourinary History: renal artery stenosis [employer] History: Reports: Musculoskeletal History: Reports: Osteoporosis Neurological History: Reports: Migraines Other Neuro History: n Endocrine/Metabolic History: Reports: Hypothyroidism, Vitamin D Deficiency Hematologic History: Reports: Anemia Other Hematologic History: Autoimmune hemolytic anemia - Infectious Disease History Infectious Disease History: Reports: Chicken Pox, Measles, Mumps - Past Surgical History GI Surgical History: Reports: Cholecystectomy Other Musculoskeletal Surgeries/Procedures:: rigth foot fracture Social & Family History - Family History Family Medical History: No Pertinent Family History - Tobacco Use Tobacco Use Status *Q: Never Tobacco User - Caffeine Use Caffeine Use: Reports: None - Recreational Drug Use Recreational Drug Use: No - Living Situation & Occupation Living situation: Reports: Occupation: Retired (lives 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 Denies: Headache Psychiatric: Reports: No Symptoms ED EXAM, GENERAL - Physical Exam Exam: See Below Exam Limited By: No Limitations General Appearance: Alert, No Apparent Distress Eye Exam: Bilateral Eye: EOMI, Normal Inspection Head: Atraumatic Neck: Supple, Non-Tender Respiratory/Chest: Lungs Clear Cardiovascular: Regular Rate, Rhythm GI/Abdominal: Soft, Non-Tender Extremities: Other (Put her upper and lower extremities through full passive range of motion and nothing was painful, there is no evidence of injury) Neurological: Alert, Confused (Mildly confused to date) Psychiatric: Normal Affect, Normal Mood Skin Exam: Warm, Dry Course - Vital Signs Last Recorded V/S: Last Vital Signs Temp 97 F 01/08/21 11:18 Pulse 89 01/08/21 12:57 Resp 12 01/08/21 12:57 BP 181/81 H 01/08/21 12:57 Pulse Ox 97 01/08/21 12:57 - Re-Assessments/Exams Free Text/Narrative Re-Assessment/Exam: 01/08/21 12:39 I do not think this patient was on the floor long enough to be concerned about rhabdomyolysis and has no sign of any injury. Her is being discharged this morning so I think she can be discharged with them and she can return if she develops any more symptoms or concerns. Departure - Departure Time of Disposition: 13:57 Disposition: Home, Self-Care 01 Clinical Impression: Generalized weakness, Gait instability Fall Qualifiers: Encounter type: initial encounter Qualified Code(s): W19.XXXA - Unspecified fall, initial encounter - Discharge Information Instructions: Weakness, [id number] Referrals: PCP,None [Primary Care Provider] - Forms: ED Department Discharge Care Plan Goals: Resume regular activity and medications. Stay hydrated, and return anytime if you redevelop symptoms or other concerns. Sepsis Event Note (ED) - Evaluation Sepsis Screening Result: No Definite Risk - Focused Exam Vital Signs: Vital Signs Temp Pulse Resp BP Pulse Ox 01/08/21 12:57 89 12 181/81 H 97 01/08/21 11:18 97 F 77 16 198/67 H 93 L 01/08/21 10:58 97 F 77 16 198/67 H 93 L
[2021-01-08 12:57] VITALS: BP 181/81; PULSE 89
== END 2021-01-08 13:58 | disposition home or self-care (01) ==
LOC: JP.ED 10:49
DX: R53.1 Weakness (principal); R26.89 Other abnormalities of gait and mobility; I48.91 Unspecified atrial fibrillation; I10 Essential (primary) hypertension; Z88.0 Allergy status to penicillin; Z88.8 Allergy status to other drugs, medicaments and biological substances; Z79.82 Long term (current) use of aspirin; Z79.899 Other long term (current) drug therapy; W19.XXXA Unspecified fall, initial encounter
CPT/HCPCS: 99284